=== PATIENT | male | born 1930 | race Caucasian/White ===

== ENCOUNTER → 2016-07-24 | Outpatient (CLI) | payer OTHER ==
[~2016-07-24] MED LIST: CYAN100020 PO; LISI-461 PO; MOME50SP5; MULT-190 PO; SERT50TA PO; ZNTT/150 PO
--- NOTE | 2016-07-24 12:14 | DIAGNOSTIC IMAGING REPORT ---
VIDEO SWALLOW HISTORY: Dysphagia SWALLOWING DYSFUNCTION TECHNIQUE: Video fluoroscopic evaluation of swallowing was performed in the AP and lateral projections by the speech pathology staff. The patient is fed nectar-thick and thin liquid barium, a barium coated wafer, and barium pudding. FLUOROSCOPY TIME: . COMPARISON STUDY: None. FINDINGS: There is normal hyoid excursion and epiglottic deflection. No significant penetration or aspiration identified. Swallowing function is within normal limits. IMPRESSION: 1. No aspiration identified. 2. Please see the speech pathologist report for detailed findings and recommendations. Electronically signed by: Mukul Crystal M.D. 07/24/2016 12:12 PM Dictated Date/Time: 07/24/2016 12:11 PM
--- NOTE | 2016-07-25 13:50 | SWALLOWING EVALUATION ---
HISTORY: This 85 year old man was referred for a video swallow study at [facility] in order to rule out aspiration and identify the safest consistencies for optimal oral intake. The patient was present and is reporting the patient coughs with liquids. This occurs more so when he drinks liquids straight out of the bottle (such as water), and now he drinks liquid from the cup with noted improvement. PMH is significant for: Dementia, frequent falls, CKD Stage III, GERD, and prostate cancer. Current diet is regular. PROCEDURE: The patient was seen in the Radiology Department of [facility] for the VFSS. Cursory examination of the oral cavity revealed natural dentition in good condition. Movement of the articulators was wnl. The patient was seated upright on a stool and was viewed in both the Anterior-Posterior (A-P) and Lateral planes. In the lateral plane, the patient was given the following boluses: 1 tsp. thin liquid barium x 2, single swallow thin liquid barium self-presented from a cup, serial swallows of thin liquid barium self-presented via straw, 1 tsp. nectar-thick liquid barium, 1 cup sips nectar thick liquid self-presented from the cup, 1 tsp. barium pudding, and 1 tsp. barium pudding. The patient was then repositioned into the A-P plane and given the following boluses: 1 tsp. nectar thick barium liquid and 1 tsp. barium pudding. RESULTS: Oral Stage: Lip closure was adequate as there was no anterior loss. The patient was able to maintain a cohesive liquid bolus upon command without lateral or posterior escape. Mastication and lingual motion for bolus transport were slow. There was retention lining the tongue and palate after the swallow. The initiation of the pharyngeal swallow was delayed, and triggered when the bolus head reached the valleculae. Pharyngeal Stage: Soft palate elevation was complete. Laryngeal elevation revealed complete superior movement of the thyroid cartilage with complete approximation of the arytenoids to the epiglottic base. Anterior hyoid excursion was partially reduced. Epiglottic deflection was complete. Laryngeal vestibular closure was complete. The pharyngeal stripping wave was present and complete. Pharyngeal contraction was also complete. The opening to the pharyngoesophageal segment (PES) was partially reduced with distention and duration of the opening. Tongue base retraction was mildly reduced with a narrow column of contrast located between the tongue base and the pharyngeal wall during the swallow. There was retention located along the tongue base after the swallow. Trace retention was located in the valleculae and pyriforms after the swallow. There was no evidence of laryngeal penetration or aspiration during this study. There were only trace amounts of retention in the pharynx after the swallow was complete as well. A second swallow was effective to clear. Esophageal stage: There was complete esophageal clearance. A cervical osteophyte was present that impinged into the mid esophagus but did not appear to significant impact bolus flow. SUMMARY/RECOMMENDATIONS: This patient presents with normal laurita-pharyngeal swallowing mechanics. The following is recommended: 1. Regular consistency diet. 2. Safe swallow strategies: Small single sips from the cup and/or straw. Keep chin in a neutral position while eating and drinking. Slow rate. A summary of the results and recommendations was discussed with the patient and his (due to underlying dementia, it was uncertain as to the patient's full comprehension) immediately following the study with verbal understanding. Thank you for referral of this patient. Please contact me at if any additional information is needed.
== END | disposition home or self-care (01) ==
LOC: C.RAD 11:11
PROVIDERS: ATTEND Family Medicine
DX: R13.10 Dysphagia, unspecified (principal)

== ENCOUNTER 2017-05-10 11:04 | Emergency (ER) | payer OTHER ==
[~2017-05-10] VITALS: Ht 175.3 cm; Wt 87.3 kg
[~2017-05-10 11:04] MED LIST changes: +RANI150T85 PO; -ZNTT/150 PO
[2017-05-10 11:07] VITALS: TEMP 36.7; Ht 175.3 cm; Wt 87.3 kg
[2017-05-10] MEDS ORDERED: SODIUM CHLORIDE 0.9% 1000ML 1,000 ML IV STA (11:35)
--- NOTE | 2017-05-10 11:41 | EMERGENCY ROOM VISIT NOTE ---
History Report prepared by Kathy: Sarina Saleem Under the Supervision of: Dr. Fabian Thomas M.D. 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 She states that she does not know if he has not drank enough fluids lately. His reports he has a difficult time with yeses and nos due to his dementia. HPI limited due to the patient's dementia. Source of History: patient, spouse/significant other () History Limited By: dementia Onset: midnight last night Review of Systems See HPI for pertinent positives & negatives. A total of 10 systems reviewed and were otherwise negative. ROS limited secondary to the patient's dementia. Past Medical & Surgical Medical Problems: (1) Esophageal Reflux (2) Malign Neopl Prostate Family History No pertinent family history Social History Smoking Status: Never Smoker Drug Use: none Marital Status: Housing Status: lives with significant other Current/Historical Medications Scheduled Cyanocobalamin (Vitamin B12), 1 TAB PO DAILY Lisinopril (Zestril), 10 MG PO HS Mometasone Furoate (Nasal) (Mometasone Furoate), 2 SPRAYS NA DAILY Ocuvite Preservision (Ocuvite Preservision), 1 TAB PO QAM Ranitidine (Zantac), 150 MG PO QPM Sertraline (Zoloft), 25 MG PO NOON Tamsulosin Hcl (Flomax), 0.4 MG PO DAILY Allergies Coded Allergies: No Known Allergies (Unverified , 05/10/17) Physical Exam Vital Signs Date Time Temp Pulse Resp B/P (MAP) Pulse Ox O2 Delivery O2 Flow Rate FiO2 05/10/17 13:57 58 18 125/59 95 05/10/17 13:00 62 18 127/62 95 Room Air 05/10/17 12:11 55 05/10/17 11:07 36.7 66 24 150/70 95 Room Air Physical Exam GENERAL: Awake, alert, well-appearing, in no acute distress. Does not answer questions. HENT: Normocephalic, atraumatic. Oropharynx unremarkable. EYES: Normal conjunctiva. Sclera non-icteric. NECK: Supple. No nuchal rigidity. FROM. No JVD. RESPIRATORY: Clear to auscultation. CARDIAC: Regular rate, normal rhythm. Extremities warm and well perfused. Pulses equal. ABDOMEN: Suprapubic area tenderness, area is rock hard. RECTAL: Deferred. MUSCULOSKELETAL: Chest examination reveals no tenderness. The back is symmetrical on inspection without obvious abnormality. There is no CVA tenderness to palpation. No joint edema. LOWER EXTREMITIES: Calves are equal size bilaterally and non-tender. No edema. No discoloration. NEURO: Normal sensorium. No sensory or motor deficits noted. SKIN: No rash or jaundice noted. Medical Decision & Procedures ER Provider Diagnostic Interpretation: Radiology results as stated below per my review and radiologist interpretation: ABD/PELVIS WITHOUT FOR STONE HISTORY: 86 years-old Male Pt c/o urinary retention acute urinary retention. COMPARISON: None available TECHNIQUE: Multiple axial CT images of the abdomen and pelvis were obtained without contrast. A dose lowering technique was used consistent with the principals of ALARA. FINDINGS: Exam is motion degraded. Linear subsegmental consolidative and groundglass opacities of the lung bases suggest areas of atelectasis/scarring. There is mild bibasilar bronchial wall thickening. No pneumatosis or pneumoperitoneum. Imaged cardiac chambers appear mildly enlarged. Annular calcifications of the mitral valve. Coronary arterial disease. Gallbladder is mildly contracted. The liver, spleen, pancreas and adrenal glands are within normal limits. Low attenuating lesions of the kidneys bilaterally suggests renal cysts, largest on the right measuring 3.8 cm. The largest on the left measures 7.6 x 7.1 cm and demonstrates thin calcified internal septation along its anterior border. Mild nonspecific bilateral perinephric stranding. Additionally, there is a hyperattenuating 4.6 x 4.6 cm homogeneous lesion of the inferior pole left kidney may reflect a hemorrhagic or proteinaceous cyst. No renal calculi or hydronephrosis. Bilateral ureters are within normal limits. Bates catheter noted within a decompressed bladder lumen. Urinary bladder wall thickening with mild perivesicular stranding. Brachial therapy seeds of the prostate. Moderate atherosclerosis of the aorta. No aneurysm. No bulky adenopathy. Small sliding-type hiatal hernia. No bowel obstruction or focal bowel wall thickening. Moderate volume of stool within the colon. Soft tissues are unremarkable. Small fat filled left inguinal hernia. The bones appear mildly demineralized. No suspicious lytic or blastic bone lesions. Multilevel discogenic degenerative changes and facet arthropathy. IMPRESSION: 1. Bates catheter within a decompressed bladder lumen. The bladder demonstrates wall thickening with mild perivesicular stranding. Correlate with urinalysis to exclude cystitis. 2. No renal calculi or obstructive uropathy. 3. Low attenuating lesions of the kidneys bilaterally suggest renal cysts. Cystic lesion with calcified thin internal septation involves the superior pole left kidney and hyperattenuating homogeneous lesion of the inferior pole left kidney suggest complex renal cysts however are not completely characterized on this single phase noncontrast study. 4. No bowel obstruction or focal bowel wall thickening. The above report was generated using voice recognition software. It may contain grammatical, syntax or spelling errors. Electronically signed by: Krunal Ospina M.D. 05/10/2017 1:06 PM Dictated Date/Time: 05/10/2017 12:54 PM Laboratory Results 05/10/17 11:40 Red Blood Count 3.95, Mean Corpuscular Volume 91.9, Mean Corpuscular Hemoglobin 31.4, Mean Corpuscular Hemoglobin Concent 34.2, Mean Platelet Volume 10.7, Neutrophils (%) (Auto) 75.4, Lymphocytes (%) (Auto) 12.5, Monocytes (%) (Auto) 10.3, Eosinophils (%) (Auto) 1.3, Basophils (%) (Auto) 0.3, Neutrophils # (Auto ) 4.70, Lymphocytes # (Auto) 0.78, Monocytes # (Auto) 0.64, Eosinophils # (Auto ) 0.08, Basophils # (Auto) 0.02 05/10/17 11:40 Test 05/10/17 11:40 05/10/17 11:45 White Blood Count 6.23 K/uL (4.8-10.8) Red Blood Count 3.95 M/uL (4.7-6.1) Hemoglobin 12.4 g/dL (14.0-18.0) Hematocrit 36.3 % (42-52) Mean Corpuscular Volume 91.9 fL (80-100) Mean Corpuscular Hemoglobin 31.4 pg (25-34) Mean Corpuscular Hemoglobin Concent 34.2 g/dl (32-36) Platelet Count 200 K/uL (130-400) Mean Platelet Volume 10.7 fL (7.4-10.4) Neutrophils (%) (Auto) 75.4 % Lymphocytes (%) (Auto) 12.5 % Monocytes (%) (Auto) 10.3 % Eosinophils (%) (Auto) 1.3 % Basophils (%) (Auto) 0.3 % Neutrophils # (Auto) 4.70 K/uL (1.4-6.5) Lymphocytes # (Auto) 0.78 K/uL (1.2-3.4) Monocytes # (Auto) 0.64 K/uL (0.11-0.59) Eosinophils # (Auto) 0.08 K/uL (0-0.5) Basophils # (Auto) 0.02 K/uL (0-0.2) RDW Standard Deviation 44.3 fL (36.4-46.3) RDW Coefficient of Variation 13.1 % (11.5-14.5) Immature Granulocyte % (Auto) 0.2 % Immature Granulocyte # (Auto) 0.01 K/uL (0.00-0.02) Anion Gap 5.0 mmol/L (3-11) Est Creatinine Clear Calc Drug Dose 45.9 ml/min Estimated GFR () 57.5 Estimated GFR (Non- 49.6 BUN/Creatinine Ratio 19.9 (10-20) Calcium Level 9.5 mg/dl (8.5-10.1) Total Bilirubin 0.5 mg/dl (0.2-1) Direct Bilirubin 0.1 mg/dl (0-0.2) Aspartate Amino Transf (AST/SGOT) 18 U/L (15-37) Alanine Aminotransferase (ALT/SGPT) 17 U/L (12-78) Alkaline Phosphatase 57 U/L (45-117) Total Protein 7.2 gm/dl (6.4-8.2) Albumin 3.9 gm/dl (3.4-5.0) Lipase 339 U/L (73-393) Urine Color YELLOW Urine Appearance CLEAR (CLEAR) Urine pH 5.0 (4.5-7.5) Urine Specific Caputa 1.015 (1.000-1.030) Urine Protein NEG (NEG) Urine Glucose (UA) NEG (NEG) Urine Ketones NEG (NEG) Urine Occult Blood NEG (NEG) Urine Nitrite NEG (NEG) Urine Bilirubin NEG (NEG) Urine Urobilinogen NEG (NEG) Urine Leukocyte Esterase NEG (NEG) Labs reviewed by ED physician. Medications Administered Medications (Trade) Dose Ordered Sig/Fatmata Route Start Time Stop Time Status Last Admin Dose Admin Sodium Chloride 1,000 ml @ 999 mls/hr Q1H1M STAT IV 05/10/17 11:35 05/10/17 12:35 DC 05/10/17 11:57 999 MLS/HR ED Course 1132: Past medical records reviewed. The patient was evaluated in room C10. A complete history and physical examination was performed. 1135: Sodium Chloride 1000 ml @ 999 mls/hr IV 1221: He is feeling much better now that there is a Bates in place. 1310: Upon reexamination the patient is agreeable. I discussed results and treatment plan with the patient and his . He and his verbalize agreement and understanding. The patient is ready for discharge. Medical Decision Differential diagnosis: Etiologies such as appendicitis, diverticulitis, PUD, biliary pathology, UTI, pancreatitis, obstruction, mesenteric ischemia, aortic pathology, infections, inflammatory bowel disease, renal colic, as well as others were entertained. This is an 86-year-old male who presents emergency department complaining of urinary retention. A Bates was placed and the patient experienced immediate cessation of pain. He was given a fluid bolus however he has a normal renal function normal CBC normal liver profile normal lipase. The patient was sent for CAT scan of the abdomen and pelvis this did not show anything acute. Patient will be sent home with a Bates catheter in place. I stressed the need for follow-up with urology. Patient was in agreement with the treatment plan. Medication Reconcilliation Current Medication List: was personally reviewed by me Blood Pressure Screening Patient's blood pressure: Elevated blood pressure Blood pressure disposition: Referred to PCP Impression Primary Impression: Urinary retention Scribe Attestation The scribe's documentation has been prepared under my direction and personally reviewed by me in its entirety. I confirm that the note above accurately reflects all work, treatment, procedures, and medical decision making performed by me. Departure Information Dispostion Home / Self-Care Prescriptions Tamsulosin Hcl (FLOMAX) 0.4 Mg Cap 0.4 MG PO DAILY for 10 Days, #10 CAP Prov: Fabian Thomas MD 05/10/17 Referrals Andrew Ty M.D. (PCP) Forms HOME CARE DOCUMENTATION FORM, IMPORTANT VISIT INFORMATION, WORK / SCHOOL INSTRUCTIONS Patient Instructions My [facility] Additional Instructions Follow up with Dr Aponte' office Culture results are usually available in approx 48 hours You have been examined and treated today on an emergency basis only. This is not a substitute for, or an effort to provide, complete comprehensive medical care. It is impossible to recognize and treat all injuries or illnesses in a single emergency department visit. It is therefore important that you follow up closely with Dr Ty. Call as soon as possible for an appointment. Thank you for your time and consideration. I look forward to speaking with you again soon. Please don't hesitate to call us if you have any questions.
[2017-05-10 11:54] LABS: BASO % 0.3 %; BASO ABS # 0.02 K/uL (0-0.2); EOS % 1.3 %; EOS ABS # 0.08 K/uL (0-0.5); HEMATOCRIT 36.3 % (42-52); HEMOGLOBIN 12.4 g/dL (14.0-18.0); IG# 0.01 K/uL (0.00-0.02); LYMPH % 12.5 %; LYMPH ABS # 0.78 K/uL (1.2-3.4); MEAN CELL VOLUME 91.9 fL (80-100); MEAN CORPUSCULAR HEMOGLOBIN 31.4 pg (25-34); MEAN CORPUSCULAR HGB CONC 34.2 g/dl (32-36); MEAN PLATELET VOLUME 10.7 fL (7.4-10.4); MONO % 10.3 %; MONO ABS # 0.64 K/uL (0.11-0.59); NEUT % 75.4 %; PLATELET COUNT 200 K/uL (130-400); RED CELL DISTRIBUTION WIDTH CV 13.1 % (11.5-14.5); RED CELL DISTRIBUTION WIDTH SD 44.3 fL (36.4-46.3); WHITE BLOOD COUNT 6.23 K/uL (4.8-10.8)
[2017-05-10] MEDS ORDERED: MOME6000 (12:04)
[2017-05-10 12:29] LABS: ALBUMIN 3.9 gm/dl (3.4-5.0); CALCIUM 9.5 mg/dl (8.5-10.1); CREATININE 1.31 mg/dl (0.60-1.40); TOTAL PROTEIN 7.2 gm/dl (6.4-8.2)
--- NOTE | 2017-05-10 13:08 | DIAGNOSTIC IMAGING REPORT ---
ABD/PELVIS WITHOUT FOR STONE HISTORY: 86 years-old Male Pt c/o urinary retention acute urinary retention. COMPARISON: None available TECHNIQUE: Multiple axial CT images of the abdomen and pelvis were obtained without contrast. A dose lowering technique was used consistent with the principals of TROY. FINDINGS: Exam is motion degraded. Linear subsegmental consolidative and groundglass opacities of the lung bases suggest areas of atelectasis/scarring. There is mild bibasilar bronchial wall thickening. No pneumatosis or pneumoperitoneum. Imaged cardiac chambers appear mildly enlarged. Annular calcifications of the mitral valve. Coronary arterial disease. Gallbladder is mildly contracted. The liver, spleen, pancreas and adrenal glands are within normal limits. Low attenuating lesions of the kidneys bilaterally suggests renal cysts, largest on the right measuring 3.8 cm. The largest on the left measures 7.6 x 7.1 cm and demonstrates thin calcified internal septation along its anterior border. Mild nonspecific bilateral perinephric stranding. Additionally, there is a hyperattenuating 4.6 x 4.6 cm homogeneous lesion of the inferior pole left kidney may reflect a hemorrhagic or proteinaceous cyst. No renal calculi or hydronephrosis. Bilateral ureters are within normal limits. Bates catheter noted within a decompressed bladder lumen. Urinary bladder wall thickening with mild perivesicular stranding. Brachial therapy seeds of the prostate. Moderate atherosclerosis of the aorta. No aneurysm. No bulky adenopathy. Small sliding-type hiatal hernia. No bowel obstruction or focal bowel wall thickening. Moderate volume of stool within the colon. Soft tissues are unremarkable. Small fat filled left inguinal hernia. The bones appear mildly demineralized. No suspicious lytic or blastic bone lesions. Multilevel discogenic degenerative changes and facet arthropathy. IMPRESSION: 1. Bates catheter within a decompressed bladder lumen. The bladder demonstrates wall thickening with mild perivesicular stranding. Correlate with urinalysis to exclude cystitis. 2. No renal calculi or obstructive uropathy. 3. Low attenuating lesions of the kidneys bilaterally suggest renal cysts. Cystic lesion with calcified thin internal septation involves the superior pole left kidney and hyperattenuating homogeneous lesion of the inferior pole left kidney suggest complex renal cysts however are not completely characterized on this single phase noncontrast study. 4. No bowel obstruction or focal bowel wall thickening. The above report was generated using voice recognition software. It may contain grammatical, syntax or spelling errors. Electronically signed by: Krunal Ospina M.D. 05/10/2017 1:06 PM Dictated Date/Time: 05/10/2017 12:54 PM
[2017-05-10] MEDS ORDERED: TAMS0.4C38 PO (13:24)
[2017-05-10 13:57] VITALS: BP 125/59; PULSE 58; O2SAT 95
== END 2017-05-10 13:59 | disposition home or self-care (01) ==
LOC: C.EDB 11:05 → C.EDC 13:59
DX: R33.9 Retention of urine, unspecified (principal); K21.9 Gastro-esophageal reflux disease without esophagitis; F03.90 Unspecified dementia, unspecified severity, without behavioral disturbance, psychotic disturbance, mood disturbance, and anxiety; Z85.46 Personal history of malignant neoplasm of prostate; Z79.899 Other long term (current) drug therapy

== ENCOUNTER 2018-01-20 21:38 | Inpatient (IN) ==
--- NOTE | 2018-01-20 22:41 | XRay Report ---
SINGLE VIEW CHEST CLINICAL HISTORY: Weakness. FINDINGS: An AP, portable, upright chest radiograph is compared to study dated 11/29/2015. The examina tion is significantly degraded by portable technique and patient rotation. The heart is mildly enlar ged and there is atherosclerotic calcification of the thoracic aorta. The pulmonary vasculature is no ncongested. There are low lung volumes. Chronic interstitial thickening is unchanged. Bibasilar scarr ing/atelectasis is observed. There is a questionable nodular density projecting the right midlung. No airspace consolidation is seen typical for pneumonia and there is no large pleural effusion. No pneu mothorax is seen. The skeletal structures are osteopenic. Degenerative changes noted in the shoulders and thoracic spine. There are healed left-sided rib fractures. IMPRESSION: 1. Cardiomegaly with no acute cardiopulmonary abnormality. 2. Low lung volumes with bibasilar scarring/atelectasis. 3. There is a questionable nodular density projecting over the right midlung. This may be artifactual . Correlation with a dedicated PA and lateral examination is recommended when the patient is clinical ly able. Electronically signed by: Luis Carson M.D. 01/20/2018 10:40 PM
[2018-01-20 22:55] LABS: Basophils # (auto) 0.03 K/uL (0-0.2); Basophils % (auto) 0.4 %; Eosinophils # (auto) 0.04 K/uL (0-0.5); Eosinophils % (auto) 0.6 %; Hematocrit (blood only) 35.2 % (42-52); Hemoglobin 11.4 g/dL (14.0-18.0); Immature Granulocytes # (auto) 0.01 K/uL (0.00-0.02); Immature Granulocytes % (auto) 0.1 %; Lymphocytes # (auto) 0.68 K/uL (1.2-3.4); Lymphocytes % (auto) 10.1 %; Mean Corpuscular Hgb Conc 32.4 g/dL (32-36); Mean Corpuscular Volume 95.9 fL (80-100); Mean Platelet Volume 12.1 fL (7.4-10.4); Monocytes # (auto) 0.63 K/uL (0.11-0.59); Monocytes % (auto) 9.3 %; Neutrophils # (auto) 5.35 K/uL (1.4-6.5); Neutrophils % (auto) 79.5 %; Platelet Count 142 K/uL (130-400); RDW Coefficient of Variation 13.3 % (11.5-14.5); RDW Standard Deviation 46.9 fL (36.4-46.3); Red Blood Count 3.67 M/uL (4.7-6.1); White Blood Count 6.74 K/uL (4.8-10.8)
--- NOTE | 2018-01-20 23:00 | CT Scan Report ---
CT SCAN OF THE BRAIN WITHOUT IV CONTRAST CLINICAL HISTORY: Dementia. Delirium. COMPARISON STUDY: CT of the brain dated 11/13/2017. TECHNIQUE: Unenhanced axial CT scan of the brain is performed from the vertex to the skull base. A do se lowering technique was utilized adhering to the principles of ALARA. CT DOSE: 614.27 mGy.cm FINDINGS: Brain parenchyma: There are age-related involutional changes noting moderate subcortical and periven tricular microangiopathic change. There is no hemorrhage, mass effect, or evidence of acute territori al ischemia by CT criteria. Roman-white matter differentiation is preserved. No extra-axial fluid elizabeth ection is seen. Ventricles, sulci, cisterns: Prominent secondary to involutional change. Intracranial vasculature: There is atherosclerotic calcification of the cavernous carotid arteries. Calvarium: Unremarkable. Sinuses and mastoids: There is a 1.6 cm retention cyst within a right posterior ethmoid air cell. The remaining visualized paranasal sinuses are clear. The mastoid air cells are well pneumatized. Orbits: The bony orbits are grossly intact. There are bilateral ocular lens implants. IMPRESSION: There is no hemorrhage, mass effect, or evidence of acute territorial ischemia by CT flor forte. Electronically signed by: Luis Carson M.D. 01/20/2018 10:59 PM
[2018-01-20 23:15] LABS: Alanine Aminotransferase 22 U/L (12-78); Albumin Level 3.6 gm/dl (3.4-5.0); BUN Creatinine Ratio 24.9 (10-20); Blood Urea Nitrogen 31 mg/dl (7-18); Carbon Dioxide 26 mmol/L (21-32); Chloride 108 mmol/L (98-107); Est GFR (African American) 61.1; Est GFR (Non-African American) 52.7; Glucose 96 mg/dl (70-99)
[2018-01-20 23:21] LABS: Potassium 4.5 mmol/L (3.5-5.1); Sodium 145 mmol/L (136-145)
[2018-01-20 23:31] LABS: Alkaline Phosphatase 94 U/L (45-117); Aspartate Aminotransferase 17 U/L (15-37); Bilirubin,Total 0.4 mg/dl (0.1-1); Globulin 3.5 gm/dl (2.5-4.0); Magnesium 2.2 mg/dl (1.8-2.4); Total Protein 7.1 gm/dl (6.4-8.2); Troponin I < 0.015 ng/ml (0-0.045)
[2018-01-21] MEDS ORDERED: HALOPERIDOL LACTATE 5 MG/ML 1 ML VIAL IV STA (00:06)
[2018-01-21 00:26] LABS: Appearance Urine Clear (Clear); Bilirubin Urine Negative (Negative); Color Urine Yellow; Glucose Urine UA Negative (Negative); Ketones Urine Negative (Negative); Leukocyte Esterase Urine Negative (Negative); Nitrite Urine Negative (Negative); Protein Urine Negative (Negative); Urobilinogen Urine Negative (Negative); pH Urine 6.5 (4.5-7.5)
--- NOTE | 2018-01-21 00:46 | Emergency Department Note ---
Entered by Sarina Saleem acting as a scribe for Raine Campuzano MD History of Present Illness General Chief complaint: Confusion Stated complaint: LEWY BODY DEMENTIA AGITATED STATE Source: family and other (asset management lead) History of Present Illness Onset (ago): hour(s) (1600 today) Location: head, upper extremity and lower extremity Pain Consistency: + other (worsening) Quality: + other (confusion, increased agitation) Associated symptoms: + other (Positive glassy eyes, wanting to be a dog, wanting to go outside and kill himself, and he becomes somewhat aggressive with his . Negative head injuries, congestion, changes in appetite); no cough and no fever/chills The patient is an 87 year old male who presents to the Emergency Room with complaints of confusion beginning at 1600 today. As per the patients family, the pt has lewy body dementia and they have been looking to put him in a senior living as his frequency of psychotic episodes is increasing. They note his episodes typically last about 30 minutes however, his current episode has persisted for the past 6 hours. They describe his episodes as the patient having glassy eyes, wanting to be a dog, wanting to go outside and kill himself , and he becomes somewhat aggressive with his . The patient has not had any head injuries, fevers, chills, cough, or congestion. The patient has no change in appetite and regularly takes his medications. His PCP is Annie Mi. Home Medications Home Medications Medication Instructions Recorded Confirmed Type acetaminophen [Tylenol] 650 mg PO Q4 PRN 11/13/17 01/21/18 History cyanocobalamin (vitamin B-12) 1,000 mcg PO DAILY 11/13/17 01/21/18 History [Vitamin B-12] mometasone [Nasonex] 2 spray INTRANASAL DAILY PRN 11/13/17 01/21/18 History ranitidine HCl 150 mg PO DAILY 11/13/17 01/21/18 History sertraline 25 mg PO DAILY 11/13/17 01/21/18 History multivitamin 1 tab PO DAILY 01/21/18 01/21/18 History vit C,F-Gh-iwzxd-lutein-zeaxan 2 tab PO DAILY 01/21/18 01/21/18 History [PreserVision AREDS-2] Allergies Allergy/AdvReac Type Severity Reaction Status Date / Time oxybutynin AdvReac Severe LETHARGIC Verified 01/21/18 00:22 quetiapine AdvReac Severe LETHARGIC Verified 01/21/18 00:22 Past Med/Surg History Medical History Hand laceration (Acute) Scalp laceration (Acute) Fall (Acute) Knee contusion (Acute) Lewy body dementia Family History Other Family history non-contributory Social History current occupational status: retired Feels Safe at Home: Yes Smoking Status: Former smoker Preferred Language: Tamazight Review of Systems See HPI for pertinent positives & negatives. and A total of 10 systems reviewed and were otherwise negative Physical Exam Vital Signs Vital Signs - 24 hr 01/20/18 21:42 01/20/18 22:39 01/21/18 00:16 Temperature 37 C Temperature Source Oral Sepsis Recent Fever Within 48 Hours No Sepsis Action Taken by Nursing No Action Required Pulse Rate 83 Pulse Rate [Apical] 70 77 Pulse Rhythm [Apical] Regular Pulse Strength [Apical] Normal Respiratory Rate 18 22 18 Respiratory Effort / Characteristics Non-Labored Spontaneous Respiratory Depth Normal Normal Respiratory Pattern Regular Blood Pressure 182/92 H Blood Pressure [Right Arm] 147/66 H 166/88 H Blood Pressure Mean 122 Blood Pressure Mean [Right Arm] 93 114 Blood Pressure Position [Right Arm] Sitting Pulse Oximetry 95 95 95 Oxygen Delivery Method Room Air Room Air Room Air Vital signs reviewed. General: Elderly and chronically ill-appearing male, in no significant distress. HEENT: No scleral icterus, PERRLA, neck supple. Atraumatic. Cardiovascular: Regular rate and rhythm, no extra sounds. Pulmonary: Clear to auscultation bilaterally, normal work of breathing. Abdomen: Soft, nontender, nondistended, positive bowel sounds. Musculoskeletal: Atraumatic, no peripheral edema. Neurologic: Minimally verbal. Repetitive speech. Follows simple commands. Easily agitated. Moves all extremities equally. Skin: Warm, dry, no rash Course 2201: Past medical records reviewed. The patient was evaluated in room A2, and a complete history and physical examination were performed. 0009: I [facility] the [facility] He will evaluate the patient for further management. Consultations Consultation #1: I reviewed the patient's case with Annie Winkler. He will evaluate the patient for further management. Time: 00:09 Administered Medications Haldol 2.5 mg IV NOW Medical Decision Making Differential Diagnosis Differential diagnosis: Etiologies such as metabolic, infection, hypoglycemia, electrolyte abnormalities , cardiac sources, intracerebral event, toxicologic, neurologic, as well as others were entertained. Medical Records Attestation: I reviewed the patient's medical records. Home Medications Current Medication List: was personally reviewed by me Laboratory Data Attestation: I reviewed the patient's lab results. Result diagrams: 01/20/18 22:40 01/20/18 22:40 Lab Results 01/20/18 01/20/18 01/20/18 Range/Units 22:37 22:40 22:40 WBC 6.74 (4.8-10.8) K/uL RBC 3.67 L (4.7-6.1) M/uL Hgb 11.4 L (14.0-18.0) g/dL Hct 35.2 L (42-52) % MCV 95.9 (80-100) fL MCH 31.1 (25-34) pg MCHC 32.4 (32-36) g/dL RDW Std Deviation 46.9 H (36.4-46.3) fL RDW Coeff of Lanette 13.3 (11.5-14.5) % Plt Count 142 (130-400) K/uL MPV 12.1 H (7.4-10.4) fL Immature Gran % (Auto) 0.1 % Neut % (Auto) 79.5 % Lymph % (Auto) 10.1 % [place] % (Auto) 9.3 % Eos % (Auto) 0.6 % Baso % (Auto) 0.4 % Immature Gran # (Auto) 0.01 (0.00-0.02) K/uL Neut # (Auto) 5.35 (1.4-6.5) K/uL Lymph # (Auto) 0.68 L (1.2-3.4) K/uL [place] # (Auto) 0.63 H (0.11-0.59) K/uL Eos # (Auto) 0.04 (0-0.5) K/uL Baso # (Auto) 0.03 (0-0.2) K/uL Sodium 145 (136-145) mmol/L Potassium 4.5 (3.5-5.1) mmol/L Chloride 108 H (98-107) mmol/L Carbon Dioxide 26 (21-32) mmol/L Anion Gap 12.0 H (3-11) BUN 31 H (7-18) mg/dl Creatinine 1.24 (0.6-1.4) mg/dl Est Cr Clr Drug Dosing 45.0 ml/min Est GFR ( Amer) 61.1 Est GFR (Non-Af Amer) 52.7 BUN/Creatinine Ratio 24.9 H (10-20) Glucose 96 (70-99) mg/dl POC Glucose 98 (70-99) Calcium 9.0 (8.5-10.1) mg/dl Magnesium 2.2 (1.8-2.4) mg/dl Total Bilirubin 0.4 (0.1-1) mg/dl AST 17 (15-37) U/L ALT 22 (12-78) U/L Alkaline Phosphatase 94 (45-117) U/L Troponin I < 0.015 (0-0.045) ng/ml Total Protein 7.1 (6.4-8.2) gm/dl Albumin 3.6 (3.4-5.0) gm/dl Globulin 3.5 (2.5-4.0) gm/dl Albumin/Globulin Ratio 1.0 (0.9-2) TSH 3.420 (0.300-4.500) uIu/ml Specimen Hemolysis Urine Color Urine Appearance (Clear) Urine pH (4.5-7.5) Ur Specific [place] (1.000-1.030) Urine Protein (Negative) Urine Glucose (UA) (Negative) Urine Ketones (Negative) Urine Blood (Negative) Urine Nitrite (Negative) Urine Bilirubin (Negative) Urine Urobilinogen (Negative) Ur Leukocyte Esterase (Negative) 01/21/18 Range/Units 00:10 WBC (4.8-10.8) K/uL RBC (4.7-6.1) M/uL Hgb (14.0-18.0) g/dL Hct (42-52) % MCV (80-100) fL MCH (25-34) pg MCHC (32-36) g/dL RDW Std Deviation (36.4-46.3) fL RDW Coeff of [place]ette (11.5-14.5) % Plt Count (130-400) K/uL MPV (7.4-10.4) fL Immature Gran % (Auto) % Neut % (Auto) % Lymph % (Auto) % [place] % (Auto) % Eos % (Auto) % Baso % (Auto) % Immature Gran # (Auto) (0.00-0.02) K/uL Neut # (Auto) (1.4-6.5) K/uL Lymph # (Auto) (1.2-3.4) K/uL [place] # (Auto) (0.11-0.59) K/uL Eos # (Auto) (0-0.5) K/uL Baso # (Auto) (0-0.2) K/uL Sodium (136-145) mmol/L Potassium (3.5-5.1) mmol/L Chloride (98-107) mmol/L Carbon Dioxide (21-32) mmol/L Anion Gap (3-11) BUN (7-18) mg/dl Creatinine (0.6-1.4) mg/dl Est Cr Clr Drug Dosing ml/min Est GFR ( Amer) Est GFR (Non-Af Amer) BUN/Creatinine Ratio (10-20) Glucose (70-99) mg/dl POC Glucose (70-99) Calcium (8.5-10.1) mg/dl Magnesium (1.8-2.4) mg/dl Total Bilirubin (0.1-1) mg/dl AST (15-37) U/L ALT (12-78) U/L Alkaline Phosphatase (45-117) U/L Troponin I (0-0.045) ng/ml Total Protein (6.4-8.2) gm/dl Albumin (3.4-5.0) gm/dl Globulin (2.5-4.0) gm/dl Albumin/Globulin Ratio (0.9-2) TSH (0.300-4.500) uIu/ml Specimen Hemolysis Urine Color Yellow Urine Appearance Clear (Clear) Urine pH 6.5 (4.5-7.5) Ur Specific [place] 1.020 (1.000-1.030) Urine Protein Negative (Negative) Urine Glucose (UA) Negative (Negative) Urine Ketones Negative (Negative) Urine Blood Negative (Negative) Urine Nitrite Negative (Negative) Urine Bilirubin Negative (Negative) Urine Urobilinogen Negative (Negative) Ur Leukocyte Esterase Negative (Negative) Imaging Data Radiologist's Impression: Radiology results as stated below per my review and the radiologist's interpretation: CT SCAN OF THE BRAIN WITHOUT IV CONTRAST CLINICAL HISTORY: Dementia. Delirium. COMPARISON STUDY: CT of the brain dated 11/13/2017. TECHNIQUE: Unenhanced axial CT scan of the brain is performed from the vertex to the skull base. A dose lowering technique was utilized adhering to the principles of ALARA. CT DOSE: 614.27 mGy.cm FINDINGS: Brain parenchyma: There are age-related involutional changes noting moderate subcortical and periventricular microangiopathic change. There is no hemorrhage , mass effect, or evidence of acute territorial ischemia by CT criteria. Roman- white matter differentiation is preserved. No extra-axial fluid collection is seen. Ventricles, sulci, cisterns: Prominent secondary to involutional change. Intracranial vasculature: There is atherosclerotic calcification of the cavernous carotid arteries. Calvarium: Unremarkable. Sinuses and mastoids: There is a 1.6 cm retention cyst within a right posterior ethmoid air cell. The remaining visualized paranasal sinuses are clear. The mastoid air cells are well pneumatized. Orbits: The bony orbits are grossly intact. There are bilateral ocular lens implants. IMPRESSION: There is no hemorrhage, mass effect, or evidence of acute territorial ischemia by CT criteria. Electronically signed by: Luis Carson M.D. 01/20/2018 10:59 PM SINGLE VIEW CHEST CLINICAL HISTORY: Weakness. FINDINGS: An AP, portable, upright chest radiograph is compared to study dated . The examination is significantly degraded by portable technique and patient rotation. The heart is mildly enlarged and there is atherosclerotic calcification of the thoracic aorta. The pulmonary vasculature is noncongested. There are low lung volumes. Chronic interstitial thickening is unchanged. Bibasilar scarring/atelectasis is observed. There is a questionable nodular density projecting the right midlung. No airspace consolidation is seen typical for pneumonia and there is no large pleural effusion. No pneumothorax is seen. The skeletal structures are osteopenic. Degenerative changes noted in the shoulders and thoracic spine. There are healed left-sided rib fractures. IMPRESSION: 1. Cardiomegaly with no acute cardiopulmonary abnormality. 2. Low lung volumes with bibasilar scarring/atelectasis. 3. There is a questionable nodular density projecting over the right midlung. This may be artifactual. Correlation with a dedicated PA and lateral examination is recommended when the patient is clinically able. Electronically signed by: Luis Carson M.D. 01/20/2018 10:40 PM ECG Data Attestation: I personally reviewed and interpreted this ECG as follows: Indication: altered mental status Rate (beats per minute): 72 Rhythm: sinus rhythm Findings: + other (previous septal infarct ) and + 1st degree AV block; no acute ischemic change and no ectopy Blood Pressure Blood Pressure Findings: Elevated blood pressure Blood Pressure Disposition: further management by hospitalist MDM Narrative This patient was evaluated and appeared to be in no significant distress. Patient does seem to get agitated somewhat easily. His and grandson are at the bedside. He apparently has been crawling around like a dog tonight for hours. He has been aggressive and physically threatening to his . Multiple attempts have been made to get the patient placed from home however unsuccessful. Patient's medical evaluation is fairly unrevealing. He will be evaluated by Dr. Cortes for further management and case management intervention. Impression & Plan Dementia, Aggressive behavior Discharge Plan Visit Data Chief Complaint: Confusion Stated Complaint: LEWY BODY DEMENTIA AGITATED STATE ED Provider: Raine Campuzano Discharge Problem: Dementia, Aggressive behavior Patient Disposition: Being Evaluated by Hospitalist Forms Stand Alone Forms: [facility] Frequency Prescriptions Prescriptions: No Action cyanocobalamin (vitamin B-12) [Vitamin B-12] 1,000 mcg Tablet 1,000 mcg PO DAILY RF: 0 mometasone [Nasonex] 50 mcg/actuation [place],Non-Aerosol 2 spray INTRANASAL DAILY PRN (Reason: Congestion) RF: 0 ranitidine HCl 150 mg Capsule 150 mg PO DAILY RF: 0 sertraline 50 mg Tablet 25 mg PO DAILY RF: 0 acetaminophen [Tylenol] 325 mg Capsule 650 mg PO Q4 PRN (Reason: Fever Or Pain) RF: 0 multivitamin Tablet 1 tab PO DAILY RF: 0 vit C,Q-Bv-vptep-lutein-zeaxan [PreserVision AREDS-2] 865-974-77-1 mg-unit-mg- mg Capsule 2 tab PO DAILY RF: 0 Referrals Referrals: Andrew Ty [Primary Care Provider] - The scribe's documentation has been prepared under my direction and personally reviewed by me in its entirety. I confirm that the note above accurately reflects all work, treatment, procedures, and medical decision making performed by me.
--- NOTE | 2018-01-21 01:06 | History & Physical Report ---
Date of Service January 21, 2018 Assessment & Plan (1) Agitation: History dementia Hypertension, currently elevated secondary to agitation BP medications stopped a few months ago due to fall concerns. Left neck deviation Rule out bony injury Prostate cancer status post radiation Chronic anemia, hemoglobin at baseline Abnormal portable chest x-ray OBS GMF Haldol as needed Resume home JULIUS inhibitor at low dose Plain neck x-rays, RE left lateral neck deviation Chest x-ray PA lat in a.m. RE abn pcxr PT OT eval Social service RE discharge planning (Family has expressed interest in having patient placed at [facility].) DVT prophylaxis. Lovenox subcu DNR as per . Patient's grandson requesting for updates from providers. Mr. Brigido Bui, [phone]. Present on Admission?: Yes History of Present Illness Chief Complaint: Agitation as per family Primary Care Provider: Andrew Ty History obtained from patient family and records. Unable to obtain history from patient secondary to dementia. Medical history significant for hypertension (currently not on meds), dementia, prostate cancer status post radiation, GERD, chronic anemia (baseline hemoglobin 11-12). Last week patient noted to have worsening agitation and hallucinations as per records. Outpatient UA did not show infection. Family had started inquiring about placing patient at [facility]. Yesterday afternoon, increased agitation noted. No fever, no chills. Patient brought to the ER by family. Medical History as above Home lisinopril stopped a few months ago due to falls. 2 weeks ago, patient noted to have neck deviation to the left by physical therapy. Possible need for Botox injection as per PT as per family. Surgical History : Hernia repair, urologic procedures Family History : Blood clots Personal/Social history : Non-smoker , no EtOH intake, retired from the [employer] business as per family Allergies Allergy/AdvReac Type Severity Reaction Status Date / Time oxybutynin AdvReac Severe LETHARGIC Verified 01/21/18 00:22 quetiapine AdvReac Severe LETHARGIC Verified 01/21/18 00:22 Home Medications Home Medications Medication Instructions Recorded Confirmed Type acetaminophen [Tylenol] 650 mg PO Q4 PRN 11/13/17 01/21/18 History cyanocobalamin (vitamin B-12) 1,000 mcg PO DAILY 11/13/17 01/21/18 History [Vitamin B-12] mometasone [Nasonex] 2 spray INTRANASAL DAILY PRN 11/13/17 01/21/18 History ranitidine HCl 150 mg PO DAILY 11/13/17 01/21/18 History sertraline 25 mg PO DAILY 11/13/17 01/21/18 History multivitamin 1 tab PO DAILY 01/21/18 01/21/18 History vit C,T-Vh-dbzcl-lutein-zeaxan 2 tab PO DAILY 01/21/18 01/21/18 History [PreserVision AREDS-2] Past Med/Surg History Medical History Hand laceration (Acute) Scalp laceration (Acute) Fall (Acute) Knee contusion (Acute) Lewy body dementia Family History Other Family history non-contributory Social History Current Living Situation: Family current occupational status: retired Feels Safe at Home: Yes Smoking Status: Unknown if ever smoked Preferred Language: Mauritian Communication Ability: Impaired Communication Ability Comment: dementia Personalized Living Manager Nurse Required: No Review of Systems Could not be reliably obtained Physical Exam 2 Vital Signs (Past 24 Hours): Last Vital Signs Temp 37 C 01/20/18 21:42 Pulse 77 01/21/18 00:16 Resp 18 01/21/18 00:16 BP 166/88 H 01/21/18 00:16 Pulse Ox 95 01/21/18 00:16 Physical Exam: GENERAL: Comfortable, demented, slightly restless, no respiratory distress SKIN: Pallor, warm HEENT: Pale palpebral conjunctivae, no ptosis, dry buccal mucosa NECK : Lateral deviation to the left, no tenderness CHEST : Decreased effort , no tenderness HEART : RRR, no obvious murmurs ABDOMEN: Soft, nontender EXTREMITIES : No LE swelling/tenderness, no other conspicuous deformities noted NEUROLOGIC : Demented , no facial asymmetry, slightly restless, gait and stance not assessed Results & Data Laboratory Results Laboratory Results WBC 6.74 K/uL (4.8-10.8) 01/20/18 22:40 RBC 3.67 M/uL (4.7-6.1) L 01/20/18 22:40 Hgb 11.4 g/dL (14.0-18.0) L 01/20/18 22:40 Hct 35.2 % (42-52) L 01/20/18 22:40 MCV 95.9 fL (80-100) 01/20/18 22:40 MCH 31.1 pg (25-34) 01/20/18 22:40 MCHC 32.4 g/dL (32-36) 01/20/18 22:40 RDW Std Deviation 46.9 fL (36.4-46.3) H 01/20/18 22:40 RDW Coeff of Lanette 13.3 % (11.5-14.5) 01/20/18 22:40 Plt Count 142 K/uL (130-400) 01/20/18 22:40 MPV 12.1 fL (7.4-10.4) H 01/20/18 22:40 Immature Gran % (Auto) 0.1 % 01/20/18 22:40 Neut % (Auto) 79.5 % 01/20/18 22:40 Lymph % (Auto) 10.1 % 01/20/18 22:40 [place] % (Auto) 9.3 % 01/20/18 22:40 Eos % (Auto) 0.6 % 01/20/18 22:40 Baso % (Auto) 0.4 % 01/20/18 22:40 Immature Gran # (Auto) 0.01 K/uL (0.00-0.02) 01/20/18 22:40 Neut # (Auto) 5.35 K/uL (1.4-6.5) 01/20/18 22:40 Lymph # (Auto) 0.68 K/uL (1.2-3.4) L 01/20/18 22:40 Dare # (Auto) 0.63 K/uL (0.11-0.59) H 01/20/18 22:40 Eos # (Auto) 0.04 K/uL (0-0.5) 01/20/18 22:40 Baso # (Auto) 0.03 K/uL (0-0.2) 01/20/18 22:40 Sodium 145 mmol/L (136-145) 01/20/18 22:40 Potassium 4.5 mmol/L (3.5-5.1) 01/20/18 22:40 Chloride 108 mmol/L (98-107) H 01/20/18 22:40 Carbon Dioxide 26 mmol/L (21-32) 01/20/18 22:40 Anion Gap 12.0 (3-11) H 01/20/18 22:40 BUN 31 mg/dl (7-18) H 01/20/18 22:40 Creatinine 1.24 mg/dl (0.6-1.4) 01/20/18 22:40 Est Cr Clr Drug Dosing 45.0 ml/min 01/20/18 22:40 Est GFR ( Amer) 61.1 01/20/18 22:40 Est GFR (Non-Af Amer) 52.7 01/20/18 22:40 BUN/Creatinine Ratio 24.9 (10-20) H 01/20/18 22:40 Glucose 96 mg/dl (70-99) 01/20/18 22:40 POC Glucose 98 (70-99) 01/20/18 22:37 Calcium 9.0 mg/dl (8.5-10.1) 01/20/18 22:40 Magnesium 2.2 mg/dl (1.8-2.4) 01/20/18 22:40 Total Bilirubin 0.4 mg/dl (0.1-1) 01/20/18 22:40 AST 17 U/L (15-37) 01/20/18 22:40 ALT 22 U/L (12-78) 01/20/18 22:40 Alkaline Phosphatase 94 U/L (45-117) 01/20/18 22:40 Troponin I < 0.015 ng/ml (0-0.045) 01/20/18 22:40 Total Protein 7.1 gm/dl (6.4-8.2) 01/20/18 22:40 Albumin 3.6 gm/dl (3.4-5.0) 01/20/18 22:40 Globulin 3.5 gm/dl (2.5-4.0) 01/20/18 22:40 Albumin/Globulin Ratio 1.0 (0.9-2) 01/20/18 22:40 TSH 3.420 uIu/ml (0.300-4.500) 01/20/18 22:40 Specimen Hemolysis 01/20/18 22:40 Urine Color Yellow 01/21/18 00:10 Urine Appearance Clear (Clear) 01/21/18 00:10 Urine pH 6.5 (4.5-7.5) 01/21/18 00:10 Ur Specific [place] 1.020 (1.000-1.030) 01/21/18 00:10 Urine Protein Negative (Negative) 01/21/18 00:10 Urine Glucose (UA) Negative (Negative) 01/21/18 00:10 Urine Ketones Negative (Negative) 01/21/18 00:10 Urine Blood Negative (Negative) 01/21/18 00:10 Urine Nitrite Negative (Negative) 01/21/18 00:10 Urine Bilirubin Negative (Negative) 01/21/18 00:10 Urine Urobilinogen Negative (Negative) 01/21/18 00:10 Ur Leukocyte Esterase Negative (Negative) 01/21/18 00:10 Diagnostic Findings Chest x-ray showed : 1. Cardiomegaly with no acute cardiopulmonary abnormality. 2. Low lung volumes with bibasilar scarring/atelectasis. 3. There is a questionable nodular density projecting over the right midlung. This may be artifactual. Correlation with a dedicated PA and lateral examination is recommended when the patient is clinically able. EKG as per my interpretation : Rate 70, NSR, first-degree AV block T wave flattening inferior leads, septal infarct CT head: No acute pathology
[2018-01-21] MEDS ORDERED: TRAMADOL HCL 50 MG TABLET PO PRN (02:15)
[2018-01-21] MEDS ORDERED: ACETAMINOPHEN 325 MG TAB PO PRN (02:15)
[2018-01-21] MEDS ORDERED: PROCHLORPERAZINE 5 MG in SYRINGE 4 ML IV PRN (02:15)
[2018-01-21] MEDS ORDERED: INFLUENZA ADMINISTRATION CHARGE ONE (04:00)
[2018-01-21] MEDS ORDERED: PNEUMOCOCCAL POLYSACCHARIDES 25 MCG/0.5 ML VIAL/SYR IM ONE (04:00)
[2018-01-21] MEDS ORDERED: PNEUMOCOCCAL ADMINISTRATION CHARGE ONE (04:00)
[2018-01-21] MEDS ORDERED: INFLUENZA VACCINE HIGH DOSE 65+ 0.5 ML SYR IM ONE (04:00)
[2018-01-21] MEDS: LISINOPRIL 2.5 MG TAB PO SCH ×2 (04:10→08:14)
[2018-01-21] MEDS: SODIUM CHLORIDE 0.45 % 1,000 ML IV SCH ×2 (04:11→20:27)
[2018-01-21] MEDS: HALOPERIDOL LACTATE 5 MG/ML 1 ML VIAL IM PRN ×2 (04:14→10:22)
[2018-01-21 05:52] LABS: Basophils # (auto) 0.03 K/uL (0-0.2); Basophils % (auto) 0.4 %; Eosinophils # (auto) 0.11 K/uL (0-0.5); Eosinophils % (auto) 1.5 %; Hematocrit (blood only) 33.8 % (42-52); Hemoglobin 11.2 g/dL (14.0-18.0); Immature Granulocytes # (auto) 0.01 K/uL (0.00-0.02); Immature Granulocytes % (auto) 0.1 %; Lymphocytes # (auto) 1.22 K/uL (1.2-3.4); Lymphocytes % (auto) 16.2 %; Mean Corpuscular Hgb Conc 33.1 g/dL (32-36); Mean Corpuscular Volume 94.4 fL (80-100); Mean Platelet Volume 10.9 fL (7.4-10.4); Monocytes # (auto) 0.83 K/uL (0.11-0.59); Neutrophils # (auto) 5.34 K/uL (1.4-6.5); Neutrophils % (auto) 70.8 %; Platelet Count 182 K/uL (130-400); RDW Standard Deviation 45.1 fL (36.4-46.3); Red Blood Count 3.58 M/uL (4.7-6.1); White Blood Count 7.54 K/uL (4.8-10.8)
[2018-01-21] MEDS: MULTIVITAMIN TAB PO SCH (08:10)
[2018-01-21] MEDS: CYANOCOBALAMIN 500 MCG TABLET (VITAMIN B-12) PO SCH (08:10)
[2018-01-21] MEDS: SERTRALINE HCL 50 MG TABLET PO SCH (08:11)
[2018-01-21] MEDS: FLUTICASONE PROPIONATE NA SPR 16 GM BTL SCH (08:24)
[2018-01-21] MEDS: ENOXAPARIN INJ 30 MG/0.3 ML SYR SQ SCH (08:26)
--- NOTE | 2018-01-21 14:36 | XRay Report ---
XR chest 1V not portable CLINICAL HISTORY: 87 years-old Male presenting with post-operative coughing and wheezing. TECHNIQUE: Portable upright AP view of the chest was obtained. COMPARISON: 01/20/2018. FINDINGS: Cardiomediastinal silhouette normal. Hazy asymmetric left lung opacity with bronchial wall thickening and left basilar bandlike opacity. No large effusion or pneumothorax. Degenerative changes of the th oracic spine. Upper abdomen normal. IMPRESSION: 1. Left lung infiltrate suspected with left basilar atelectasis. Asymmetric edema or aspiration sintia ot be excluded. Consider chest CT if clinically appropriate. Electronically signed by: Donaldo Luther M.D. 01/21/2018 2:35 PM
--- NOTE | 2018-01-21 14:37 | XRay Report ---
XR cervical spine 2 or 3V HISTORY: Scoliosis L deviation COMPARISON: None. FINDINGS: The cervical spine is visualized from C1 through the superior endplate of T1. There is no f racture. No subluxation. Disc spaces are preserved. Prevertebral soft tissues and the atlantodens in terval are intact. Considerable degenerative disc change throughout. Scoliosis. Calcification of rankin tid vasculature. IMPRESSION: 1. Scoliosis possibly related to muscular spasm. Degenerative change of the entire cervical region. C alcification of the carotid vasculature. The above report was generated using voice recognition software. It may contain grammatical, syntax or spelling errors. Electronically signed by: Mukul Crystal M.D. 01/21/2018 2:36 PM
--- NOTE | 2018-01-21 15:30 | Hospitalist Progress Note ---
Date of Service January 21, 2018 Assessment & Plan (1) Dementia: h/o dementia with aggressive behavior. Presented with prolonged psychotic episode and has not regained mental clarity today. Will discuss baseline mental status with family when able. Of note, repeat chest x-ray today revealed left lung opacity consistent with possible pneumonia. This was not seen on chest x-ray yesterday may not be the original cause of confusion. As it is now present will perform blood cultures and start empiric antibiotics at this time. Long-term plan is placement into [facility] per family. Appreciate case management assistance with this. (2) Pneumonia: Single view chest x-ray yesterday revealed no acute cardiopulmonary abnormality with a questionable nodular density projecting over the right mid lung that may be possible artifact. The patient went for repeat chest x-ray today however a lateral exam was not performed. This nodular density was not commented on however there was a new left lung infiltrate suspected with left basilar atelectasis. Aspiration pneumonia is a possibility with aggressive behavior and altered mental mentation. Will perform blood cultures and begin empiric antibiotics. (3) Hypertension: Elevated blood pressure on admission likely secondary to agitation. Lisinopril was restarted at 2.5 mg daily. Patient has a history of hypertension with discontinuation of outpatient blood pressure medications secondary to fall concern for a couple of months ago. Continue lisinopril 2.5 daily for now. (4) DVT prophylaxis: Subjective 87-year-old man with history of Lewy body dementia presented to the ER with family after an episode of confusion that was prolonged from typical episodes as well as agitation. Episodes noted to last 30 minutes had persisted for many hours. Patient admitted to suicidal ideations as well as wanting to go outside and be, a dog. On arrival he was hemodynamically stable and afebrile oxygenating well on room air he was not in acute distress and was admitted to the hospitalist service. Overnight he became aggressive with nursing staff and required Haldol, but was calm after this. He is tolerating food per nursing staff and worked with PT and OT today. Lab work this morning revealed unremarkable CBC and urine was tested and was clear. Chest x-ray revealed no pneumonia yesterday, however, on repeat chest x-ray today in left lung infiltrate was seen. Currently the patient is resting comfortably in bed and awakens to voice but is unable to focus on me. He generally lifts his head and arm inappropriately, and then falls back asleep. He is unable to answer questions or accomplish review of systems. Physical Exam 2 Vital Signs (Past 24 Hours): Last Vital Signs Temp 36.3 C L 01/21/18 08:34 Pulse 80 01/21/18 08:18 Resp 18 01/21/18 08:18 BP 152/67 H 01/21/18 08:18 Pulse Ox 94 01/21/18 08:34 CONSTITUTIONAL: WNWD, vitals as above, altered EYES: normal conjuctivae, no scleral icterus ENT: MMM RESPIRATORY: limited exam as pt is supine and unable to follow instructions. clear to auscultation bilaterally, no crackles, rales or wheezes, normal respiratory effort CARDIOVASCULAR: regular rate and rhythm, S1 and 2 heard without murmurs, gallops or rubs, no JVD, no peripheral edema GASTROINTESTINAL: soft, nontender, nondistended MUSCULOSKELETAL: cannot exam 2/2 altered mental state SKIN: warm and dry, multiple small cuts on shins bilaterally, well-healing. NEUROLOGIC: altered, opens eyes to voice. Results & Data Laboratory Results Short CBC 01/20/18 01/21/18 Range/Units 22:40 05:35 WBC 6.74 7.54 (4.8-10.8) K/uL Hgb 11.4 L 11.2 L (14.0-18.0) g/dL Hct 35.2 L 33.8 L (42-52) % Plt Count 142 182 (130-400) K/uL BMP 01/20/18 22:40 Sodium 145 Potassium 4.5 Chloride 108 H Carbon Dioxide 26 BUN 31 H Creatinine 1.24 Glucose 96 Calcium 9.0 Cardiac Enzymes 01/20/18 Range/Units 22:40 Troponin I < 0.015 (0-0.045) ng/ml Liver Function 01/20/18 Range/Units 22:40 Total Bilirubin 0.4 (0.1-1) mg/dl AST 17 (15-37) U/L ALT 22 (12-78) U/L Alkaline Phosphatase 94 (45-117) U/L Albumin 3.6 (3.4-5.0) gm/dl Urine 01/21/18 Range/Units 00:10 Urine Color Yellow Urine Appearance Clear (Clear) Urine pH 6.5 (4.5-7.5) Ur Specific [place] 1.020 (1.000-1.030) Urine Protein Negative (Negative) Urine Glucose (UA) Negative (Negative) Diagnostic Findings CXR 1V: (01/21): IMPRESSION: 1. Left lung infiltrate suspected with left basilar atelectasis. Asymmetric edema or aspiration cannot be excluded. Consider chest CT if clinically appropriate. _ (1) Dementia Alzheimer's disease onset: Dementia behavioral disturbance: with behavioral disturbance Dementia type: Lewy body dementia Qualified Code(s): G31.83 - Dementia with Lewy bodies; F02.81 - Dementia in other diseases classified elsewhere with behavioral disturbance
[2018-01-21] MEDS ORDERED: [UNRECOGNIZED DRUG - REMARK] PRN (18:37)
[2018-01-21] MEDS: AMPICILLIN/SULBACTAM SOD 3,000 MG in 0.9 % SODIUM CHLORIDE 100 ML IV SCH (19:13)
[2018-01-22] MEDS: AMPICILLIN/SULBACTAM SOD 3,000 MG in 0.9 % SODIUM CHLORIDE 100 ML IV SCH ×4 (01:35→18:26)
[2018-01-22 07:21] LABS: Hematocrit (blood only) 37.2 % (42-52); Hemoglobin 12.2 g/dL (14.0-18.0); Mean Corpuscular Hgb Conc 32.8 g/dL (32-36); Mean Corpuscular Volume 93.9 fL (80-100); Platelet Count 210 K/uL (130-400); RDW Coefficient of Variation 13.2 % (11.5-14.5); RDW Standard Deviation 45.4 fL (36.4-46.3); Red Blood Count 3.96 M/uL (4.7-6.1); White Blood Count 8.41 K/uL (4.8-10.8)
[2018-01-22 07:50] LABS: BUN Creatinine Ratio 23.8 (10-20); Calcium 8.9 mg/dl (8.5-10.1); Creatinine Clr Calc Pharmacy 50.2 ml/min; Est GFR (African American) 69.8; Est GFR (Non-African American) 60.2; Potassium 3.9 mmol/L (3.5-5.1)
[2018-01-22] MEDS: CYANOCOBALAMIN 500 MCG TABLET (VITAMIN B-12) PO SCH (08:17)
[2018-01-22] MEDS: MULTIVITAMIN TAB PO SCH (08:17)
[2018-01-22] MEDS: SERTRALINE HCL 50 MG TABLET PO SCH (08:18)
[2018-01-22] MEDS: LISINOPRIL 2.5 MG TAB PO SCH (08:18)
[2018-01-22] MEDS: FLUTICASONE PROPIONATE NA SPR 16 GM BTL SCH (08:21)
[2018-01-22] MEDS: ENOXAPARIN INJ 30 MG/0.3 ML SYR SQ SCH (08:22)
--- NOTE | 2018-01-22 10:10 | Clinical Documentation Query ---
CLINICAL DOCUMENTATION QUERY Dr. THOMPSON, In your clinical opinion is this patient being managed for: ( ) Metabolic encephalopathy ( ) Not Agree ( x ) Other explanation of clinical findings- Dementia, end stage ( ) Unable to determine ( ) Need to Discuss (Phone CDS or qliq) (No discussion is considered a No Response) The medical record reflects the following clinical findings, treatment, and risk factors. Clinical Indicators: 87 yo male presenting with worsening confusion. CT head negative for acute changes. Repeat CXR: Left lung infiltrate suspected with left basilar atelectasis. Treatment: OBS status to full admit, IV unasyn, 1:1 OBS Risk Factors: suspected pneumonia, preexisting lewy body dementia Please clarify and document your clinical opinion in the progress notes and discharge summary. Terms such as "probable", "suspected", "likely", "questionable", "possible", or "still to be ruled out" are acceptable. IF IN AGREEMENT, YOU MUST DOCUMENT ABOVE DIAGNOSTIC STATEMENT IN DAILY PROGRESS NOTES AND DISCHARGE SUMMARY. This document is not part of the patient' s record. Thank You, Madeline Goode, RN [phone] [facility]ITAL[facility]
--- NOTE | 2018-01-22 15:23 | Hospitalist Progress Note ---
Date of Service January 22, 2018 Assessment & Plan (1) Lewy body dementia with behavioral disturbance: Admitted for placement. Since yesterday morning he has been calm and cooperative. He is eating and not resisting staff. Some improvement to baseline mental status per description by tamiko. Baseline is described as poor verbal communication ability, repeating words especially those at the end of the sentence he hears. Episodes of behavioral aggression have been increasing in frequency and length of time over the past couple of months to the point he cannot be cared for at home. There is no clear underlying metabolic disturbance that is driving this--may just be the dementia process. Consulted Neurology to help shed some light. Still on Unasyn for possible aspiration pneumonia seen on repeat CXR after episode yesterday morning. Possible this may be helping? Multiple medications discontinued today by me after speaking with his grandson. No real changes on or off the sertraline. Lisinopril was a problem in the past causing frequent falling. Unsure of the benefits of B12 supplementation and daily multivitamins as he is eating very well. Lastly, he does have some evidence of torticollis and may be experiencing pain from this or arthritis which has plagued him in the past. Will empirically treat him for pain with 24/7 scheduled Tylenol and monitor for improvement. If too fatigued on this dose, will decrease. Referral/evaluation from [facility] pending. (2) Pneumonia: Poss 2/2 aspiration during agitation episode. Continues on Unasyn until clinically improved and stable. blood cultures pending. (3) Hypertension: Elevated blood pressure on admission likely secondary to agitation. Lisinopril was restarted at 2.5 mg daily. Patient has a history of hypertension with discontinuation of outpatient blood pressure medications secondary to fall concern for a couple of months ago. DC lisinopril now. (4) DVT prophylaxis: Lovenox DNR-confirmed with tamiko by phone tonight. Dispo-to SNF vs dementia unit when medically stable and accepted. Spoke with Brigido morrison, by phone tonight for 30 minutes. Explained all plans and all questions were answered. Naomi Joel DO [facility] Hospitalist Subjective 87-year-old man with Lewy body dementia presents to the hospital for increased agitation, uncontrollable by family. He is awaiting placement. Mental status appears to be clearing and is at baseline. Spoke with Brigido morrison this evening by phone. Patient is tolerating p.o. Review of systems is unobtainable secondary to dementia. No episodes of agitation overnight. Physical Exam 2 Vital Signs (Past 24 Hours): Last Vital Signs Temp 36.4 C L 01/22/18 06:21 Pulse 70 01/22/18 06:21 Resp 18 01/22/18 06:21 BP 138/73 01/22/18 06:21 Pulse Ox 97 01/22/18 06:21 CONSTITUTIONAL: WNWD, vitals as above, altered EYES: normal conjuctivae, no scleral icterus, PERRL ENT: MMM RESPIRATORY: limited exam as pt is supine and unable to follow instructions. clear to auscultation bilaterally, no crackles, rales or wheezes, normal respiratory effort CARDIOVASCULAR: regular rate and rhythm, S1 and 2 heard without murmurs, gallops or rubs, no JVD, no peripheral edema GASTROINTESTINAL: soft, nontender, nondistended MUSCULOSKELETAL: cannot exam 2/2 altered mental state SKIN: warm and dry, multiple small cuts on shins bilaterally, well-healing. NEUROLOGIC: altered, opens eyes to voice. Results & Data Laboratory Results Short CBC 01/22/18 Range/Units 07:04 WBC 8.41 (4.8-10.8) K/uL Hgb 12.2 L (14.0-18.0) g/dL Hct 37.2 L (42-52) % Plt Count 210 (130-400) K/uL BMP 01/22/18 07:04 Sodium 143 Potassium 3.9 Chloride 109 H Carbon Dioxide 23 BUN 26 H Creatinine 1.11 Glucose 83 Calcium 8.9
--- NOTE | 2018-01-22 17:27 | Consultation Report ---
DATE OF CONSULTATION: 01/22/2018 Consult for Naomi Joel DO. LOCATION: He is in room 275. HISTORY OF PRESENT ILLNESS: Lane is an 87 [address] old patient of Dr. Andrew Ty and was admitted yesterday for evaluation of increasing agitation and confusion which probably began last week. Unfortunately, no family members are present in the room. He is now pretty sedated after having a lot of agitation last night and is on 1:1 nursing. So evaluation is obtained purely from review of the recorded history. He apparently has a history of dementia, although looking through his home medications, there is no evidence that he is currently on Aricept or Namenda, although he may have been on them in the past and they were ineffective.or he could not tolerate them He is said to have hypertension. He has prostate cancer status post radiation, although I do not know the Jeanne score or staging. He has chronic anemia and he has an admission abnormal chest x-ray showing what may be an aspiration pneumonia. Currently, there is no clear explanation for his increasing agitation other than perhaps a pneumonitis. Apparently, the records indicate he was having hallucinations as well as the agitation and outpatient urinalysis to ensure infection. Family became alarmed and was beginning to talk about placement at [facility]. All things accelerated to the point yesterday he had to be brought in the hospital but there was still no fever, no chills, no history of rigors. No history of cough, hemoptysis or any other issues that I can obtain from the chart. He was on lisinopril up until a few months ago when the medication was stopped due to what was assumed to be some orthostasis. Several weeks ago, he was noted to have some neck deviation to the left from physical therapy and there was some talk of Botox injections. PAST SURGICAL HISTORY: Surgically, he has had hernia repair, multiple urologic procedures and radiation for prostate cancer. FAMILY HISTORY: Positive for "blood clots, although I do not know the details." SOCIAL HISTORY: Reveals him to be a nonsmoker, nonconsumer of ethanol. 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 ALLERGIES: HE HAS ALLERGIES TO OXYBUTYNIN AND SEROQUEL, the latter producing of apparently significant lethargy and the oxybutynin probably producing some confusion and agitation due to anticholinergic effects. Upon review of his [facility] outpatient chrt Aricept is listed as an allergy although I cannot ascertain the reaction CURRENT HOME MEDICATIONS: Include acetaminophen, B12, Nasonex, ranitidine, sertraline, multivitamins and vitamin C, E, zinc; copper, Lutein and Zeaxan in the form of preservation for what I assume is some macular degeneration The only diagnosis that I can find on the chart regarding his dementia indicates it is a Lewy body dementia which might explain some of the ongoing agitation and some of the parkinsonian features are evident at the bedside today The outpatient chart however mentions only a mixed dementia so the Lewy Body diagnosis may be incorrect. We have been asked to see him by Naomi Joel because of his lack of clear cut explanation for his apparent step off in his overall mental status. REVIEW OF SYSTEMS: Really could not be obtained from the patient either by Dr. Barnes, the admitting physician or myself today, but the important points to indicate a lack of obvious signs of a systemic infection. PHYSICAL EXAMINATION: VITAL SIGNS: Revealed temperature 37, pulse 77, respirations were 18, blood pressure 166/88, pulse oximetry was 95. GENERAL: He was a demented man who appeared to be comfortable but was restless. SKIN: Free of cyanosis and was warm and dry. HEENT: Revealed no abnormalities. NECK: Supple. CHEST: Chest wall was free of deformities. There was no tenderness. HEART: Had a regular rhythm without murmurs. ABDOMEN: Soft, nontender. EXTREMITIES: Free of edema. NEUROLOGIC: He is very lethargic. He has a lot of rigidity. There is some gegenhalten. He can open his eyes, he does a lot of echolalia, will repeat words continuously once stated. He nods affirmatively to most questions even though they are clearly erroneous. He has what appears to be normal eye movements, although exam is difficult because he keeps his eyes closed. I need to force them open. Speech is monotonous and low volume. Again, there is generalized bradykinesia and rigidity. I do not see any parkinsonian tremor. Reflexes are difficult to elicit, they are present but with a poor relaxation they are hard to rate and toes are downgoing. No Shayna signs are seen. Strength testing appears to be grossly intact. Sensation really cannot be assessed. LABORATORY STUDIES AND IMAGING: As outlined in the chart indicate no significant leukocytosis. No significant electrolyte abnormalities, but the chest x-ray does show a nodular density over the right mid lung field and a repeat x-ray suggests an aspiration pneumonia and he has now been placed on ampicillin. EKG does show a rate of 70, first-degree AV block. CT of the head was interpreted to show atrophy, perhaps some white matter changes but nothing acute and certainly nothing for subdural hematoma. ASSESSMENT AND PLAN: At this point, I suspect this man does have a dementia perhaps indeed Lewy Body in light of the emerging rigidity and hallucinations but the record indicates a mixed picture and aricept which can elp lewy body was not tolerated Parkinson medications often make it worse and this may explain why he is not on them deapite his emerging rigidity I think he does have a delirium likely due to his pneumonia and whether this is an aspiration or not is an academic question. He is now quite somnolent after a night of apparently agitation and some diarrheal stools. I will check him tomorrow and perhaps will be a little more history available and I need to get on the [facility] chart, look through his records and establish the true diagnosis here and review some of the history. For now, however, I would not change anything other than the use of Haldol judiciously and perhaps get psychiatry involved if the level of agitation is not improved with treatment of his infection. Social service needs to get involved as apparently the family is currently interested in potential placement. MIRIAN
[2018-01-22] MEDS: ACETAMINOPHEN 500 MG TAB PO SCH (18:26)
[2018-01-23] MEDS: AMPICILLIN/SULBACTAM SOD 3,000 MG in 0.9 % SODIUM CHLORIDE 100 ML IV SCH ×4 (01:24→19:31)
[2018-01-23] MEDS: ACETAMINOPHEN 500 MG TAB PO SCH ×3 (03:16→20:32)
[2018-01-23] MEDS: ENOXAPARIN INJ 30 MG/0.3 ML SYR SQ SCH (11:02)
--- NOTE | 2018-01-23 13:12 | Hospitalist Progress Note ---
Date of Service January 23, 2018 Assessment & Plan (1) Lewy body dementia with behavioral disturbance: Admitted for placement. Continues to remain calm and is drowsy likely secondary to scheduled Tylenol that was started yesterday to treat empiric pain. Continues on every 15 minute checks. To drowsy to swallow pills or eat breakfast this morning but had been reliably eating. Will decrease Tylenol level by 50%. Appeared to be at baseline mental status per description by tamiko yesterday. Still on Unasyn for possible aspiration pneumonia. We will continue treatment course for pneumonia at this time. Multiple medications were discontinued including sertraline, lisinopril, B12 supplementation and daily multivitamins. Flonase was also stopped. Referral to [facility] is pending. Continue empiric Tylenol (2) Pneumonia: Poss 2/2 aspiration during agitation episode. Continue on Unasyn for now. Blood cultures preliminarily negative (3) Hypertension: No elevated blood pressure overnight despite discontinuation of lisinopril. Of note this may be an effect of the Tylenol in controlling pain. Continue to monitor. (4) DVT prophylaxis: Lovenox DNR-confirmed with tamiko by phone Dispo-to SNF vs dementia unit when medically stable and accepted. Naomi Joel DO [facility] Hospitalist Subjective 87-year-old man with Lewy body dementia. Mostly sleepy and somnolent overnight and through this morning likely secondary to Tylenol started last night for empiric treatment of pain. Continue with reduced dose of Tylenol starting this evening. Review of systems is unobtainable secondary to somnolence. Per nursing staff patient did not eat breakfast or take morning meds secondary to somnolence. Physical Exam 2 Vital Signs (Past 24 Hours): Last Vital Signs Temp 36.4 C L 01/23/18 07:04 Pulse 57 L 01/23/18 07:04 Resp 20 01/23/18 07:04 BP 133/77 01/23/18 07:04 Pulse Ox 96 01/23/18 07:04 CONSTITUTIONAL: WNWD, vitals as above, altered, somnolent EYES: normal conjuctivae, no scleral icterus, pupils are round and equal bilaterally ENT: MMM RESPIRATORY: CTAB (limited 2/2 mental status) CARDIOVASCULAR: regular rate and rhythm, S1 and 2 heard without murmurs, gallops or rubs, no JVD, no peripheral edema GASTROINTESTINAL: soft, nondistended MUSCULOSKELETAL: cannot exam 2/2 altered mental state SKIN: warm and dry, multiple small cuts on shins bilaterally, well-healing. NEUROLOGIC: somnolent
--- NOTE | 2018-01-23 14:42 | Progress Note ---
DATE: 01/23/2018 I saw Lane today. Discussed his case by telephone with Naomi Joel, but unfortunately no family members are present in the room for me to check back on his history and on chart review, it appears that this dementia has been coming on for quite a number of years. It has been variably diagnosed. Currently, he is classified as a mixed dementia, but there are features that suggest Lewy body disease with a lot of hallucinations and some rigidity. He apparently did poorly on Aricept, which would have been the treatment of choice for Lewy body disease and could not tolerate Sinemet. although the reasons for this are not clear. The issues to some degree are academic as tretment at this point is supportive only with behavioral control as needed His CT scan shows only a modest degree of leukoencephalopathy and atrophy compatible with age. His laboratory studies have shown very little in terms of leukocytosis or any metabolic disturbances, but he does have an aspiration pneumonia perhaps related to his period of agitation. He is on Unasyn. He is on [id number] Tylenol, which is now being reduced thinking that this may be a cause of his sedation and many of his medications have been pulled including apparently sertraline, Flonase, lisinopril, B12 supplementation and daily multivitamins. Unfortunately, he remains somnolent this afternoon. I can arouse him with a great degree of difficulty. He will open his eyes and make eye contact. I do not see any gross cranial nerve deficits. He seems to respond to visual threat equally and he will squeeze both my hands equally to command. I can get him to withdraw his legs, but in terms of verbal output all I can get is the same echolalia that I obtained yesterday. He perseverates thus and when I asked him if he felt okay, he kept repeating "okay, okay, okay." He remains despite his somnolent state very rigid but has no tremor and only gegenhalten rather than ocgwheel regidity At this point, I continue to feel this is a delirium, but he has accelerated into this and there is no obvious cause other than the potential pneumonia, so I am going to check an EEG just to be sure there is not any evidence for subclinical seizure activity. If he persists in this and we do not have any other explanation, we may have to do an MRI to be sure he does not have an embolic shower or an infectious process that might be detectable, but clinically, he has no obviousl source of cerebral emboli ( eks shows normal sinus rhythm), and he really does not have anything that looks like a meningitis or encephalitis at this point. Furthermore he is a DNR has an end stage dementing illness that is untreatable so a very aggressive diagnostic approach is simply not appropriate here I will check back with him tomorrow after the EEG is done. MIRIAN
[2018-01-24] MEDS: AMPICILLIN/SULBACTAM SOD 3,000 MG in 0.9 % SODIUM CHLORIDE 100 ML IV SCH ×2 (00:55→06:42)
[2018-01-24] MEDS: ACETAMINOPHEN 500 MG TAB PO SCH ×3 (04:36→21:25)
[2018-01-24] MEDS: ENOXAPARIN INJ 40 MG/0.4 ML SYR SQ SCH (10:12)
--- NOTE | 2018-01-24 10:55 | Hospitalist Progress Note ---
Date of Service January 24, 2018 Assessment & Plan (1) Lewy body dementia with behavioral disturbance: Admitted for placement. Appears to be doing well on the scheduled Tylenol 500mg PO [id number] drowsy on the 1000mg dose. Tolerating PO without issue. Ambulated today. Appears to be at basleine mental status. Awaiting placement. (2) Pneumonia: Poss 2/2 aspiration during agitation episode. Unasyn changed to Augmentin (3) Hypertension: Somewhat uncontrolled over last 24 hours after discontinuation of lisinopril. (4) DVT prophylaxis: Lovenox DNR-confirmed with grandson by phone Dispo-to SNF vs dementia unit when medically stable and accepted. Naomi Joel DO [facility] Hospitalist Subjective 87-year-old man with Lewy body dementia. Less somnolence on the lower scheduled dose of tylenol. Ambulated today, tolerating PO. . Physical Exam 2 Vital Signs (Past 24 Hours): Last Vital Signs Temp 36.7 C 01/24/18 07:07 Pulse 83 01/24/18 07:07 Resp 18 01/24/18 07:07 BP 161/70 H 01/24/18 07:07 Pulse Ox 97 01/24/18 07:07 CONSTITUTIONAL: WNWD, vitals as above, somnolent, disoriented, minimal verbal response to questioning. EYES: normal conjuctivae, no scleral icterus, pupils are round and equal bilaterally ENT: MMM RESPIRATORY: CTAB (limited 2/2 mental status) CARDIOVASCULAR: regular rate and rhythm, S1 and 2 heard without murmurs, gallops or rubs, no JVD, no peripheral edema GASTROINTESTINAL: soft, nondistended MUSCULOSKELETAL: cannot exam 2/2 altered mental state NEUROLOGIC: somnolent
--- NOTE | 2018-01-24 11:21 | Procedure Note ---
EEG Procedure Note Date of Service January 24, 2018 Start / End Times Start Time: 823 End Time: 843 Referring Physician Mac Huffman MD History KNown dementia now with progressive obtundation Home Medication List Home Medications Medication Instructions Recorded Confirmed Type acetaminophen [Tylenol] 650 mg PO Q4 PRN 11/13/17 01/21/18 History cyanocobalamin (vitamin B-12) 1,000 mcg PO DAILY 11/13/17 01/21/18 History [Vitamin B-12] mometasone [Nasonex] 2 spray INTRANASAL DAILY PRN 11/13/17 01/21/18 History ranitidine HCl 150 mg PO DAILY 11/13/17 01/21/18 History sertraline 25 mg PO DAILY 11/13/17 01/21/18 History multivitamin 1 tab PO DAILY 01/21/18 01/21/18 History vit C,H-Io-ixdks-lutein-zeaxan 2 tab PO DAILY 01/21/18 01/21/18 History [PreserVision AREDS-2] Inpatient Medication List Acetaminophen (Tylenol) 500 mg PO Q8H SWATI Stop: 02/22/18 20:59 Last Admin: 01/24/18 04:36 Dose: 500 mg Admin: 01/23/18 20:32 Dose: 500 mg Enoxaparin Sodium (Lovenox) 40 mg SQ QAM SWATI Stop: 02/23/18 08:59 Last Admin: 01/24/18 10:12 Dose: 40 mg Haloperidol Lactate (Haldol) 2 mg IM Q2H PRN PRN Reason: Agitation Stop: 02/20/18 02:14 Last Admin: 01/21/18 10:22 Dose: 2 mg Admin: 01/21/18 04:14 Dose: 2 mg Discontinued Medications Acetaminophen (Tylenol) 1,000 mg PO Q8H WSATI Stop: 02/21/18 17:59 Last Admin: 01/23/18 11:01 Dose: Not Given Admin: 01/23/18 03:16 Dose: Not Given Admin: 01/22/18 18:26 Dose: 1,000 mg Cyanocobalamin (Vitamin B-12) 1,000 mcg PO DAILY SWATI Stop: 02/20/18 08:59 Last Admin: 01/22/18 08:17 Dose: 1,000 mcg Admin: 01/21/18 08:10 Dose: 1,000 mcg Enoxaparin Sodium (Lovenox) 30 mg SQ QAM SWATI Stop: 02/20/18 08:59 Last Admin: 01/23/18 11:02 Dose: 30 mg Admin: 01/22/18 08:22 Dose: 30 mg Admin: 01/21/18 08:26 Dose: 30 mg Fluticasone Propionate (Flonase) 2 sprays NA DAILY SWATI Stop: 02/20/18 08:59 Last Admin: 01/22/18 08:21 Dose: 2 sprays Admin: 01/21/18 08:24 Dose: 2 sprays Haloperidol Lactate (Haldol) 2.5 mg IV NOW STA Stop: 01/21/18 00:07 Last Admin: 01/21/18 01:09 Dose: 2.5 mg Sodium Chloride (1/2 Nss) 1,000 mls @ 60 mls/hr IV .[id number] SWATI Stop: 02/20/18 02:14 Last Infusion: 01/22/18 07:33 Dose: 0 mls/hr Infusion: 01/22/18 06:42 Dose: 60 mls/hr Infusion: 01/22/18 06:11 Dose: 0 mls/hr Infusion: 01/22/18 02:12 Dose: 60 mls/hr Infusion: 01/22/18 01:35 Dose: 0 mls/hr Admin: 01/21/18 20:27 Dose: 60 mls/hr Infusion: 01/21/18 20:27 Dose: 0 mls/hr Infusion: 01/21/18 19:18 Dose: 0 mls/hr Admin: 01/21/18 04:11 Dose: 60 mls/hr Ampicillin Sodium/Sulbactam Sodium 3,000 mg/ Sodium Chloride 108 mls @ 200 mls/ hr IV Q6H SWATI; Protocol Stop: 01/28/18 18:59 Last Infusion: 01/24/18 07:15 Dose: 0 mls/hr Admin: 01/24/18 06:42 Dose: 200 mls/hr Infusion: 01/24/18 01:30 Dose: 0 mls/hr Admin: 01/24/18 00:55 Dose: 200 mls/hr Infusion: 01/23/18 20:09 Dose: 0 mls/hr Admin: 01/23/18 19:31 Dose: 200 mls/hr Infusion: 01/23/18 15:49 Dose: 0 mls/hr Admin: 01/23/18 14:10 Dose: 200 mls/hr Infusion: 01/23/18 07:08 Dose: 0 mls/hr Admin: 01/23/18 06:28 Dose: 200 mls/hr Infusion: 01/23/18 01:58 Dose: 0 mls/hr Admin: 01/23/18 01:24 Dose: 200 mls/hr Infusion: 01/22/18 19:12 Dose: 0 mls/hr Admin: 01/22/18 18:26 Dose: 200 mls/hr Infusion: 01/22/18 14:33 Dose: 0 mls/hr Admin: 01/22/18 14:01 Dose: 200 mls/hr Infusion: 01/22/18 06:42 Dose: 0 mls/hr Admin: 01/22/18 06:09 Dose: 200 mls/hr Infusion: 01/22/18 02:12 Dose: 0 mls/hr Admin: 01/22/18 01:35 Dose: 200 mls/hr Infusion: 01/21/18 20:27 Dose: 0 mls/hr Admin: 01/21/18 19:13 Dose: 200 mls/hr Influenza Virus Vaccine (Fluzone High-Dose Pf) 0.5 ml IM .ONCE ONE Stop: 01/21/18 04:01 Last Admin: 01/21/18 17:57 Dose: Not Given Lisinopril (Zestril) 2.5 mg PO QAM [facility] Stop: 02/20/18 01:29 Last Admin: 01/22/18 08:18 Dose: 2.5 mg Admin: 01/21/18 08:14 Dose: 2.5 mg Admin: 01/21/18 04:10 Dose: Not Given Multivitamins (Multivitamin) 1 tab PO DAILY [facility] Stop: 02/20/18 08:59 Last Admin: 01/22/18 08:17 Dose: 1 tab Admin: 01/21/18 08:10 Dose: 1 tab Pneumococcal Polyvalent Vaccine (Pneumovax-23) 25 mcg IM .ONCE ONE Stop: 01/21/18 04:01 Last Admin: 01/21/18 17:59 Dose: Not Given Ranitidine HCl (Zantac) 150 mg PO DAILY [facility] Stop: 02/20/18 08:59 Last Admin: 01/22/18 08:18 Dose: 150 mg Admin: 01/21/18 08:11 Dose: 150 mg Sertraline HCl (Zoloft) 25 mg PO DAILY [facility] Stop: 02/20/18 08:59 Last Admin: 01/22/18 08:18 Dose: 25 mg Admin: 01/21/18 08:11 Dose: 25 mg Description This is a 21 electrode EEG with a single channel dedicated to limited EKG. The electrodes were placed in accordance with the International 10-20 system.This study was dne at the [facility] with simultaneous video recording of movement and behavior photic stimulation was also done Initially there are numerous movement artefacts but as the tracing progresses these disappear and the pattern is quite interpretable/ The study was done during wakefulness drowsiness and sleep are not clearly recorded but the video recording only reveals a man whose eyea are closed and is non verbal Under these conditions thre is evidence for a normal background alpha rhythm seen symmetrically in posterior head regions, a slight accentuation of lower frequence theta and rare delta waves in the central regions and bilaterally symmetraical low voltage alpha bifrontally. There is no evidence for potentially epileptogenic patterns and no lateralized slow wave activity Photic stimulation induces no important changes Interpretation At most a mildly slow eeg during wakefulness with no evidence for potentially epileptogenic patterns and no lateralizing features Clinical Correlation Mildly diffusely abnormal eeg consitent with at most a mild nonfocal encephalopathy without epileptogenic features Mac Huffman MD
--- NOTE | 2018-01-24 16:57 | Progress Note ---
DATE: 01/24/2018 Lane is a little more awake today than he has been. He tries to interact. He makes some sounds, but none of this makes any sense and he is quite rigid. His eyes are open. He will make contact. He responds to visual threat in both lopez. I do not see any facial asymmetry. 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 Whether this is a late stage Lewy body disease or mixed vascular and degenerative dementia or even a Parkinson's disorder with secondary dementia is not clear and is of academic importance only as we really are not going to change treatment. According to the nurse's notes he has been able to go to the bathroom with assistance and apparently he is trying to take some food and according to Dr. Joel's note who discussed the case with his grandson, he is close to his baseline. Many medications have been held. 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 We went ahead with an EEG just to be certain that some of his lethargy was not due to intermittent nonconvulsive seizure activity and this tracing is at most mildly abnormal with slightly excessive amounts of theta activity which in actuality could be normal for a man of this age. There is good background alpha rhythm and theta symmetrical, there is beta activity and of importance is the fact there is no evidence for potentially epileptogenic discharges. At this point, neurology is going to sign off, placement apparently is being investigated specifically in [facility]. He is a do not resuscitate, so I do not think we need to get an any more aggressive in terms of diagnostic studies or treatment at this time. I will be happy to take a look at him again over the weekend if things would change. MIRIAN
[2018-01-24] MEDS: AMOXICILLIN/CLAVULANATE 875 MG TAB PO SCH (17:52)
[2018-01-25] MEDS: ACETAMINOPHEN 500 MG TAB PO SCH ×3 (05:04→20:31)
[2018-01-25 06:19] LABS: Hematocrit (blood only) 39.1 % (42-52); Hemoglobin 12.9 g/dL (14.0-18.0); Mean Corpuscular Volume 92.9 fL (80-100); Mean Platelet Volume 10.8 fL (7.4-10.4); Platelet Count 208 K/uL (130-400); RDW Coefficient of Variation 12.8 % (11.5-14.5); RDW Standard Deviation 43.7 fL (36.4-46.3); Red Blood Count 4.21 M/uL (4.7-6.1); White Blood Count 6.58 K/uL (4.8-10.8)
[2018-01-25 06:46] LABS: BUN Creatinine Ratio 20.9 (10-20); Calcium 8.9 mg/dl (8.5-10.1); Creatinine Clr Calc Pharmacy 41.3 ml/min; Est GFR (African American) 55.1; Est GFR (Non-African American) 47.5; Potassium 3.5 mmol/L (3.5-5.1)
[2018-01-25] MEDS: AMOXICILLIN/CLAVULANATE 875 MG TAB PO SCH ×2 (07:30→17:30)
[2018-01-25] MEDS: ENOXAPARIN INJ 40 MG/0.4 ML SYR SQ SCH (07:30)
[2018-01-25] MEDS: HALOPERIDOL LACTATE 5 MG/ML 1 ML VIAL IM PRN (11:35)
--- NOTE | 2018-01-25 15:45 | Hospitalist Progress Note ---
Date of Service January 25, 2018 Assessment & Plan (1) Lewy body dementia with behavioral disturbance: Admitted for placement. Appears to be doing well on the scheduled Tylenol 500mg PO [id number] drowsy on the 1000mg dose. Tolerating PO without issue. Some overinsistence today with getting up and out of bed multiple times , displaying some aggression with this. Received Haldol today, but one hour later was alert and able to eat lunch. [place] base with grandson prior to this and gave update. (2) Pneumonia: Poss 2/2 aspiration during agitation episode. Unasyn changed to Augmentin (3) Hypertension: Controlled, holding antihypertensives to avoid falls. (4) DVT prophylaxis: Lovenox DNR Dispo-to SNF vs dementia unit when medically stable and accepted. Naomi Joel DO [facility] Hospitalist Subjective 87 yo M with end stage dementia and behavioral disturbance, admitted for placement. Some aggressive behavior today requiring Haldol administration with good response. ROS is unobtainable 2/2 mental status. Physical Exam 2 Vital Signs (Past 24 Hours): Last Vital Signs Temp 36.1 C L 01/25/18 15:04 Pulse 59 L 01/25/18 15:04 Resp 18 01/25/18 15:04 BP 126/69 01/25/18 15:04 Pulse Ox 95 01/25/18 15:04 CONSTITUTIONAL: WNWD, vitals as above, somnolent, disoriented, minimal verbal response to questioning. EYES: normal conjuctivae, PERRL ENT: MMM RESPIRATORY: CTAB (limited 2/2 mental status) CARDIOVASCULAR: regular rate and rhythm, S1 and 2 heard without murmurs, gallops or rubs, no JVD, no peripheral edema GASTROINTESTINAL: soft, nondistended MUSCULOSKELETAL: cannot exam 2/2 altered mental state NEUROLOGIC: somnolent Results & Data Laboratory Results Short CBC 01/25/18 Range/Units 06:02 WBC 6.58 (4.8-10.8) K/uL Hgb 12.9 L (14.0-18.0) g/dL Hct 39.1 L (42-52) % Plt Count 208 (130-400) K/uL BMP 01/25/18 06:02 Sodium 141 Potassium 3.5 Chloride 107 Carbon Dioxide 25 BUN 28 H Creatinine 1.35 Glucose 77 Calcium 8.9
[2018-01-26] MEDS: ACETAMINOPHEN 500 MG TAB PO SCH ×3 (04:40→19:19)
[2018-01-26] MEDS: ENOXAPARIN INJ 40 MG/0.4 ML SYR SQ SCH (07:37)
[2018-01-26] MEDS: AMOXICILLIN/CLAVULANATE 875 MG TAB PO SCH ×2 (07:41→16:58)
--- NOTE | 2018-01-26 13:48 | Hospitalist Progress Note ---
Date of Service January 26, 2018 Assessment & Plan (1) Lewy body dementia with behavioral disturbance: Admitted for placement. Appears to be doing well on the scheduled Tylenol 500mg PO [id number] drowsy on the 1000mg dose. Tolerating PO without issue. No agitation overnight, continues to remain more somnolent than alert but can open his eyes and eat, performing some ADLs without issue. (2) Pneumonia: Poss 2/2 aspiration during agitation episode. Cont Augmentin to complete the course. (3) Hypertension: Controlled, holding antihypertensives to avoid falls. (4) DVT prophylaxis: Lovenox DNR Dispo-to SNF vs dementia unit when medically stable and accepted. [facility] 87[facility]year[facility] man with Lewy body dementia that is progressed. The patient remains at the same mental state. Review of systems is unobtainable secondary to progressive dementia. I am unable to get him to verbally communicate with me today. He stares at me but eyes appear distant. His lips are moving but no words are coming out. He does not appear in any distress. He is able to sit up and reliably eat regular food without issue. He can ambulate with assistance. Awaiting placement. Physical Exam 2 Vital Signs (Past 24 Hours): Last Vital Signs Temp 36.3 C L 01/26/18 07:18 Pulse 52 L 01/26/18 07:18 Resp 20 01/26/18 07:18 BP 133/70 01/26/18 07:18 Pulse Ox 97 01/26/18 07:18 CONSTITUTIONAL: WNWD, vitals as above, somnolent, disoriented, minimal verbal response to questioning. EYES: normal conjuctivae, PERRL ENT: MMM RESPIRATORY: CTAB (limited 2/2 mental status) CARDIOVASCULAR: regular rate and rhythm, S1 and 2 heard without murmurs, gallops or rubs, no JVD, no peripheral edema GASTROINTESTINAL: soft, nondistended MUSCULOSKELETAL: cannot exam 2/2 altered mental state NEUROLOGIC: somnolent PSYCH: open eyes to verbal stimulation, does not make good eye contact, there is no back and forth verbal or nonverbal communication. Lips move but no words. Eyes appear distant
[2018-01-27] MEDS: ACETAMINOPHEN 500 MG TAB PO SCH ×3 (05:08→20:55)
[2018-01-27] MEDS: AMOXICILLIN/CLAVULANATE 875 MG TAB PO SCH ×2 (07:30→16:53)
[2018-01-27] MEDS: ENOXAPARIN INJ 40 MG/0.4 ML SYR SQ SCH (07:30)
--- NOTE | 2018-01-27 17:01 | Hospitalist Progress Note ---
Date of Service January 27, 2018 Assessment & Plan (1) Lewy body dementia with behavioral disturbance: Admitted for placement. Appears to be doing well on the scheduled Tylenol 500mg PO [id number] drowsy on the 1000mg dose. Tolerating PO without issue. No agitation overnight, continues to remain more somnolent than alert but can open his eyes and eat, performing some ADLs without issue. (2) Pneumonia: Poss 2/2 aspiration during agitation episode. Cont Augmentin to complete the 7-day course today. (3) Hypertension: Controlled, holding antihypertensives to avoid falls. (4) Muscle spasm: Neck muscle spasm, scheduled tylenol as above. Considering Botox therapy as outpatient per beth. (5) DVT prophylaxis: Lovenox DNR Dispo-to SNF vs dementia unit when medically stable and accepted. Naomi Joel DO [facility] Hospitalist Subjective 87-year-old man with dementia. Patient physical exam is unchanged today. Altered mental status secondary to dementia without changes. Patient is clinically stable for the last several days. No aggression overnight. Physical Exam 2 Vital Signs (Past 24 Hours): Last Vital Signs Temp 36.8 C 01/27/18 16:32 Pulse 59 L 01/27/18 16:32 Resp 17 01/27/18 16:32 BP 136/69 01/27/18 16:32 Pulse Ox 91 01/27/18 16:32 CONSTITUTIONAL: WNWD, vitals as above, eyes open and starting, nonverbal, doesn 't follow instructions. EYES: normal conjuctivae, pupils are equal bilaterally ENT: MMM RESPIRATORY: CTAB (limited 2/2 mental status) CARDIOVASCULAR: regular rate and rhythm, S1 and 2 heard without murmurs, gallops or rubs, no peripheral edema GASTROINTESTINAL: soft, nondistended MUSCULOSKELETAL: cannot exam 2/2 altered mental state NEUROLOGIC: somnolent PSYCH: open eyes to verbal stimulation, does not make good eye contact, there is no back and forth verbal or nonverbal communication.
[2018-01-27] MEDS ORDERED: AMOXICILLIN/CLAVULANATE 875 MG TAB PO SCH (17:30)
[2018-01-28] MEDS: ACETAMINOPHEN 500 MG TAB PO SCH ×2 (04:57→12:26)
[2018-01-28] MEDS: ENOXAPARIN INJ 40 MG/0.4 ML SYR SQ SCH (07:16)
[2018-01-28] MEDS: POLYETHYLENE (MIRALAX) 17 GM PACK PO SCH (12:25)
--- NOTE | 2018-01-28 16:52 | Hospitalist Progress Note ---
Date of Service January 28, 2018 Assessment & Plan (1) Lewy body dementia with behavioral disturbance: Admitted for placement. Appears to be doing well on the scheduled Tylenol 500mg PO [id number] drowsy on the 1000mg dose. Tolerating PO without issue. No agitation overnight, continues to remain more somnolent than alert but can open his eyes and eat, performing some ADLs without issue. (2) Pneumonia: Poss 2/2 aspiration. Cont Augmentin to complete the 7-day course today. (3) Hypertension: Controlled, (4) Muscle spasm: Neck muscle spasm, scheduled tylenol as above . Considering Botox therapy as outpatient per beth. (5) DVT prophylaxis: Lovenox DNR Dispo waiting for placement -to SNF vs dementia unit Subjective 87-year-old man with dementia. non verbal does not communicate aid present at bedside -assisting in dinner per nursing -pt did not show any evidence of agitation presented with Altered mental status secondary to dementia without changes. Patient is clinically stable for the last several days. No behavioral issues or aggression noted Physical Exam 2 Vital Signs (Past 24 Hours): Last Vital Signs Temp 36.8 C 01/28/18 15:34 Pulse 61 01/28/18 15:34 Resp 18 01/28/18 15:34 BP 144/83 H 01/28/18 15:34 Pulse Ox 94 01/28/18 15:34 Constitutional: + ill appearing and + altered mental status (lethergic , does not communicate ) Eyes: + anicteric sclerae Respiratory: normal respiratory effort; no respiratory distress Cardiovascular: Rate/Rhythm: regular rate and regular rhythm Gastrointestinal (Abdomen): Inspection/Auscultation: abdomen normal to inspection Percussion/Palpation: abdomen soft Skin: + lesion (skin tear noted on rt hand , bandaged ) Neurologic: + confused (unable to follow command ) and + obtunded
[2018-01-28] MEDS ORDERED: ACETAMINOPHEN 500 MG TAB PO PRN (18:35)
--- NOTE | 2018-01-28 19:57 | CT Scan Report ---
CT head/brain wo con CLINICAL HISTORY: 87 years-old Male with changed mental status . Acutely altered mental status TECHNIQUE: Multiple axial CT images of the head were obtained without contrast. A dose lowering tech nique was utilized adhering to the principles of ALARA. CT DOSE: 614.27 mGy.cm COMPARISON: CT head 01/20/2018. FINDINGS: No acute intracranial hemorrhage, midline shift, intracranial mass, hydrocephalus, territorial ischem ia or abnormal extra-axial collection. Moderate atrophy with moderate hypodensity within the white ma tter suggestive of chronic microvascular ischemic changes. The calvarium is intact. The paranasal sinuses, mastoid air cells, and middle ear cavities are clear . IMPRESSION: No acute intracranial abnormality. The above report was generated using voice recognition software. It may contain grammatical, syntax o r spelling errors. Electronically signed by: Krunal Ospina M.D. 01/28/2018 7:56 PM
[2018-01-29] MEDS: ENOXAPARIN INJ 40 MG/0.4 ML SYR SQ SCH (08:33)
[2018-01-29] MEDS: POLYETHYLENE (MIRALAX) 17 GM PACK PO SCH (08:39)
--- NOTE | 2018-01-29 14:46 | Hospitalist Progress Note ---
Date of Service January 29, 2018 Assessment & Plan (1) Lewy body dementia with behavioral disturbance: Advanced dementia no behavioral issues or agitation for past few day did not require any PRN dose of Haldol was Somnolent yesterday CT head : showed no acute change more awake and alert today cont to monitor updated Neurology will no persue for MRI of brain as pt appears to be back to baseline pt is waiting for placement in correction vs dementia unit (2) Pneumonia: Poss 2/2 aspiration. Cont Augmentin to complete the 7-day course today. aspiration precaution diet changed to Pureed complete assistantce in all the meals (3) Hypertension: Controlled, (4) Muscle spasm: Neck muscle spasm, scheduled tylenol as above . Considering Botox therapy as outpatient per beth. (5) DVT prophylaxis: Lovenox DNR Dispo waiting for placement -to SNF vs dementia unit Subjective 87-year-old man with dementia. pt is more awake today ,opening eyes able to says " he is fine " unable to follow command per Nursing -pt has been awake most part of the day has been repeating words " Echolalia " ( present on admission -due to dementia ) ate all his meals Physical Exam 2 Vital Signs (Past 24 Hours): Last Vital Signs Temp 36.7 C 01/29/18 07:44 Pulse 67 01/29/18 07:44 Resp 18 01/29/18 07:44 BP 109/51 L 01/29/18 07:44 Pulse Ox 91 01/29/18 07:44 Constitutional: + ill appearing; no acute distress awake Eyes: + anicteric sclerae Respiratory: normal respiratory effort; no respiratory distress Cardiovascular: Rate/Rhythm: regular rate and regular rhythm Gastrointestinal (Abdomen): Inspection/Auscultation: abdomen normal to inspection Percussion/Palpation: abdomen soft Skin: + lesion (skin tear noted on rt hand , bandaged ) Neurologic: awake and + confused (unable to follow command ) Speech / Cognition: + abnormal cognition (Dementia )
[2018-01-29] MEDS ORDERED: SOD PHOSPHATE/SOD BIPHOSPHATE ENEMA 132 ML BTL PR PRN (17:33)
[2018-01-29] MEDS: HALOPERIDOL LACTATE 5 MG/ML 1 ML VIAL IM PRN (21:24)
[2018-01-30] MEDS: ENOXAPARIN INJ 40 MG/0.4 ML SYR SQ SCH (10:42)
[2018-01-30] MEDS: POLYETHYLENE (MIRALAX) 17 GM PACK PO SCH (10:43)
--- NOTE | 2018-01-30 17:28 | Hospitalist Progress Note ---
Date of Service January 30, 2018 Assessment & Plan (1) Lewy body dementia with behavioral disturbance: Advanced dementia no behavioral issues or agitation for past few day did not require any PRN dose of Haldol No change in status pt is waiting for placement in intermediate Being evaluated by Nicky laguna for placement and grandson updated (2) Pneumonia: Poss 2/2 aspiration. Cont Augmentin to complete the 7-day course aspiration precaution Appreciate speech eval diet changed to Pureed complete assistance in all the meals Per nursing, patient able to finish all his meals, no evidence of cough or aspiration noted (3) Hypertension: Controlled, (4) Muscle spasm: Chronic left-sided neck muscle spasm/torticollis Does not appear to be comfortable Ordered for Tylenol as needed Avoid sedative narcotics: Will cause worsening of mentation Grandson: Was wondering about possible Botox therapy Updated family: Given advanced disease, dementia, Botox therapy may not be appropriate Moreover at present patient appears to be pretty comfortable not in pain Best to avoid pain medication or intervention as much as possible Family in agreement (5) DVT prophylaxis: Lovenox DNR Dispo waiting for placement -to SNF vs dementia unit Subjective More awake today, having dinner Family visiting, and grandson at bedside Physical Exam 2 Vital Signs (Past 24 Hours): Last Vital Signs Temp 36.3 C L 01/30/18 15:00 Pulse 66 01/30/18 15:00 Resp 18 01/30/18 15:00 BP 153/80 H 01/30/18 15:00 Pulse Ox 92 01/30/18 15:00 Constitutional: + ill appearing and + altered mental status (lethergic , does not communicate ); no acute distress Eyes: + anicteric sclerae Respiratory: normal respiratory effort; no respiratory distress Cardiovascular: Rate/Rhythm: regular rate and regular rhythm Gastrointestinal (Abdomen): Inspection/Auscultation: abdomen normal to inspection Percussion/Palpation: abdomen soft Skin: + lesion (skin tear noted on rt hand , bandaged ) Neurologic: awake and + confused (unable to follow command ) Speech / Cognition: + abnormal cognition (Dementia )
[2018-01-31] MEDS: ENOXAPARIN INJ 40 MG/0.4 ML SYR SQ SCH (10:17)
[2018-01-31] MEDS: POLYETHYLENE (MIRALAX) 17 GM PACK PO SCH (10:17)
--- NOTE | 2018-01-31 17:25 | Hospitalist Progress Note ---
Date of Service January 31, 2018 Assessment & Plan (1) Lewy body dementia with behavioral disturbance: Advanced dementia no behavioral issues or agitation for past few day did not require any PRN dose of Haldol No change in status pt is waiting for placement in skilled nursing Being evaluated by Nicky laguna for placement and grandson updated (2) Pneumonia: Poss 2/2 aspiration. Cont Augmentin to complete the 7-day course aspiration precaution Appreciate speech eval diet changed to Pureed complete assistance in all the meals Per nursing, patient able to finish all his meals, no evidence of cough or aspiration noted (3) Hypertension: Controlled, (4) Muscle spasm: Chronic left-sided neck muscle spasm/torticollis Does not appear to be comfortable Ordered for Tylenol as needed Avoid sedative narcotics: Will cause worsening of mentation Grandson: Was wondering about possible Botox therapy Updated family: Given advanced disease, dementia, Botox therapy may not be appropriate Moreover at present patient appears to be pretty comfortable not in pain Best to avoid pain medication or intervention as much as possible Family in agreement (5) DVT prophylaxis: Lovenox DNR Dispo waiting for placement -to SNF vs dementia unit Subjective status remains unchanged opened eyes with voice moved rt arm slowly to reach things in air unable to communicate to answer questions no sign of distress noted Physical Exam 2 Vital Signs (Past 24 Hours): Last Vital Signs Temp 36.5 C 01/31/18 15:30 Pulse 62 01/31/18 15:30 Resp 20 01/31/18 15:30 BP 143/70 H 01/31/18 15:30 Pulse Ox 94 01/31/18 15:30 Constitutional: + ill appearing and + altered mental status (lethergic , does not communicate ); no acute distress Eyes: + anicteric sclerae Respiratory: normal respiratory effort; no respiratory distress Cardiovascular: Rate/Rhythm: regular rate and regular rhythm Gastrointestinal (Abdomen): Inspection/Auscultation: abdomen normal to inspection Percussion/Palpation: abdomen soft Skin: + lesion (skin tear noted on rt hand , bandaged ) Neurologic: awake and + confused (unable to follow command ) Speech / Cognition: + abnormal cognition (Dementia )
[2018-02-01] MEDS: ENOXAPARIN INJ 40 MG/0.4 ML SYR SQ SCH (08:41)
[2018-02-01] MEDS: POLYETHYLENE (MIRALAX) 17 GM PACK PO SCH (08:41)
--- NOTE | 2018-02-01 16:23 | Hospitalist Progress Note ---
Date of Service February 01, 2018 Assessment & Plan (1) Lewy body dementia with behavioral disturbance: Advanced dementia no behavioral issues or agitation for all last week did not require any PRN dose of Haldol past few days last dose of Haldol was 01/29 clinically remains stable pt is waiting for placement in snf Being evaluated by [facility] for placement (2) Pneumonia: Poss 2/2 aspiration. completed Augmentin 7-day course aspiration precaution Appreciate speech eval diet changed to Pureed complete assistance in all the meals Per nursing, patient able to finish all his meals, no evidence of cough or aspiration noted (3) Hypertension: Controlled, (4) Muscle spasm: Chronic left-sided neck muscle spasm/torticollis Does not appear to be comfortable Ordered for Tylenol as needed Avoid sedative narcotics: Will cause worsening of mentation Grandson: Was wondering about possible Botox therapy Updated family: Given advanced disease, dementia, Botox therapy may not be appropriate Moreover at present patient appears to be pretty comfortable not in pain Best to avoid pain medication or intervention as much as possible Family in agreement (5) DVT prophylaxis: Lovenox DNR Dispo waiting for placement -to SNF vs dementia unit Subjective awake , eyes are open , confused baseline advanced demenita unable to communicate no behavioral issues or agitation noted Physical Exam 2 Vital Signs (Past 24 Hours): Last Vital Signs Temp 35.9 C L 02/01/18 14:54 Pulse 68 02/01/18 14:54 Resp 16 02/01/18 14:54 BP 148/69 H 02/01/18 14:54 Pulse Ox 95 02/01/18 14:54 Constitutional: + ill appearing and + altered mental status (lethergic , does not communicate ); no acute distress Eyes: + anicteric sclerae Respiratory: normal respiratory effort; no respiratory distress Cardiovascular: Rate/Rhythm: regular rate and regular rhythm Gastrointestinal (Abdomen): Inspection/Auscultation: abdomen normal to inspection Percussion/Palpation: abdomen soft Skin: + lesion (skin tear noted on rt hand , bandaged ) Neurologic: awake and + confused (unable to follow command ) Speech / Cognition: + abnormal cognition (Dementia )
[2018-02-02] MEDS: ENOXAPARIN INJ 40 MG/0.4 ML SYR SQ SCH (08:30)
[2018-02-02] MEDS: POLYETHYLENE (MIRALAX) 17 GM PACK PO SCH (08:30)
--- NOTE | 2018-02-02 17:36 | Hospitalist Progress Note ---
Date of Service February 02, 2018 Assessment & Plan (1) Lewy body dementia with behavioral disturbance: Advanced dementia no behavioral issues or agitation for all last week did not require any PRN dose of Haldol past few days last dose of Haldol was 01/29 clinically remains stable pt is waiting for placement in long term Being evaluated by [facility] for placement (2) Pneumonia: Poss 2/2 aspiration. completed Augmentin 7-day course aspiration precaution Appreciate speech eval diet changed to Pureed complete assistance in all the meals Per nursing, patient able to finish all his meals, no evidence of cough or aspiration noted (3) Hypertension: Controlled, (4) Muscle spasm: Chronic left-sided neck muscle spasm/torticollis Does not appear to be comfortable Ordered for Tylenol as needed Avoid sedative narcotics: Will cause worsening of mentation Grandson: Was wondering about possible Botox therapy Updated family: Given advanced disease, dementia, Botox therapy may not be appropriate Moreover at present patient appears to be pretty comfortable not in pain Best to avoid pain medication or intervention as much as possible Family in agreement (5) DVT prophylaxis: Lovenox DNR Dispo waiting for placement -to SNF vs dementia unit Subjective No evidence of agitation, combative Opens eyes to voice No sign of distress Patient is unable to communicate due to advanced dementia Physical Exam 2 Vital Signs (Past 24 Hours): Last Vital Signs Temp 36.3 C L 02/02/18 14:55 Pulse 67 02/02/18 14:55 Resp 16 02/02/18 14:55 BP 153/79 H 02/02/18 14:55 Pulse Ox 94 02/02/18 14:55 Constitutional: + ill appearing and + altered mental status (lethergic , does not communicate ); no acute distress Eyes: + anicteric sclerae Respiratory: normal respiratory effort; no respiratory distress Cardiovascular: Rate/Rhythm: regular rate and regular rhythm Gastrointestinal (Abdomen): Inspection/Auscultation: abdomen normal to inspection Percussion/Palpation: abdomen soft Skin: + lesion (skin tear noted on rt hand , bandaged ) Neurologic: awake, + confused (unable to follow command ) and + obtunded Speech / Cognition: + abnormal cognition (Dementia )
[2018-02-03] MEDS: POLYETHYLENE (MIRALAX) 17 GM PACK PO SCH (09:19)
[2018-02-03] MEDS: ENOXAPARIN INJ 40 MG/0.4 ML SYR SQ SCH (09:20)
--- NOTE | 2018-02-03 14:43 | Hospitalist Progress Note ---
Date of Service February 03, 2018 Assessment & Plan (1) Lewy body dementia with behavioral disturbance: Advanced dementia no behavioral issues or agitation for all last week did not require any PRN dose of Haldol past few days last dose of Haldol was 01/29 clinically remains stable pt is waiting for placement in group home Being evaluated by [facility] for placement (2) Pneumonia: Poss 2/2 aspiration. completed Augmentin 7-day course aspiration precaution Appreciate speech eval diet changed to Pureed complete assistance in all the meals Per nursing, patient able to finish all his meals, no evidence of cough or aspiration noted (3) Hypertension: Controlled, (4) Muscle spasm: Chronic left-sided neck muscle spasm/torticollis Does not appear to be comfortable Ordered for Tylenol as needed Avoid sedative narcotics: Will cause worsening of mentation Grandson: Was wondering about possible Botox therapy Updated family: Given advanced disease, dementia, Botox therapy may not be appropriate Moreover at present patient appears to be pretty comfortable not in pain Best to avoid pain medication or intervention as much as possible Family in agreement (5) DVT prophylaxis: Lovenox DNR accepted in [facility] possible transfer tomorrow 02/04/18 Subjective status remains unchanged advanced dementia , unable to communicate no agitation or behavioral issues noted in last 6 days accepted at [facility] transfer tomorrow Physical Exam 2 Vital Signs (Past 24 Hours): Last Vital Signs Temp 36.3 C L 02/03/18 07:16 Pulse 80 02/03/18 07:16 Resp 16 02/03/18 07:16 BP 143/86 H 02/03/18 07:16 Pulse Ox 95 02/03/18 07:16 Constitutional: + ill appearing and + altered mental status (lethergic , does not communicate ); no acute distress Eyes: + anicteric sclerae Respiratory: normal respiratory effort; no respiratory distress Cardiovascular: Rate/Rhythm: regular rate and regular rhythm Gastrointestinal (Abdomen): Inspection/Auscultation: abdomen normal to inspection Percussion/Palpation: abdomen soft Skin: + lesion (skin tear noted on rt hand , bandaged ) Neurologic: awake, + confused (unable to follow command ) and + obtunded Speech / Cognition: + abnormal cognition (Dementia )
[2018-02-04] MEDS: POLYETHYLENE (MIRALAX) 17 GM PACK PO SCH (08:33)
[2018-02-04] MEDS: ENOXAPARIN INJ 40 MG/0.4 ML SYR SQ SCH (08:33)
--- NOTE | 2018-02-04 11:34 | Hospitalist Progress Note ---
Date of Service February 04, 2018 Assessment & Plan (1) Lewy body dementia with behavioral disturbance: Advanced dementia wo behavioral issues or agitation for > 1 week. clinically remains stable pt is waiting for placement in alf (2) Pneumonia: Poss 2/2 aspiration. completed Augmentin 7-day course aspiration precaution diet changed to Pureed per Speech Path recs. Repeat CXR as outpatient to ensure resolution of pneumonia. (3) Hypertension: Controlled, off antihypertensives, which were stopped after frequent falling at home. (4) Muscle spasm: Chronic left-sided neck muscle spasm/torticollis, currently comfortable. Cont Tylenol PRN. Possible Botox as outpatient. (5) Constipation: Stopped Fleet's enema as this will not likely be tolerated. Continues on daily Miralax without BM. Added BID Colase and daily Bisacodyl suppositories until BM. Ambulate with assist. (6) DVT prophylaxis: Lovenox DNR Dispo-medically stable for DC to a personal [facility]. Awaiting referral to process. Naomi Joel DO [facility] Hospitalist. Subjective 87-year-old man with progressive Lewy body dementia awaiting home term care facility. Review of systems is unobtainable dementia. Per nursing staff patient has not had a bowel movement in several days despite compliance with daily MiraLAX. The patient is reportedly eating. He consistently takes his clothes off so he is when they are placed on him, however, there has been no episode of aggression requiring a restraint of any kind. Physical Exam 2 Vital Signs (Past 24 Hours): Last Vital Signs Temp 36.2 C L 02/04/18 07:03 Pulse 60 02/04/18 07:03 Resp 18 02/04/18 07:03 BP 152/75 H 02/04/18 07:03 Pulse Ox 94 02/04/18 07:03 CONSTITUTIONAL: WNWD, vitals as above, NAD, eyes are closed and patient not responding to me but is making sounds as if he is comfortably asleep. EYES: PERRL, normal conjuctivae, no scleral icterus ENT: MMM NECK: trachea midline RESPIRATORY: clear to auscultation bilaterally, no crackles, rales or wheezes, normal respiratory effort CARDIOVASCULAR: regular rate and rhythm, S1 and 2 heard without murmurs, gallops or rubs, no peripheral edema, CHEST: inspection of chest was normal (+pacemaker, +port) GASTROINTESTINAL: normal bowel sounds, soft, no withdrawal to palpation, nondistended. MUSCULOSKELETAL: unable to obtain 2/2 mental status SKIN: warm and dry, small skin tear on R forearm-covered w bandage that is c/d/ i NEUROLOGIC: Unable to obtain 2/2 dementia. PSYCHIATRIC: Eyes closed, lying supine in bed, moves spontaneously and makes verbal noises but does not open his eyes and converse with me today. No good eye contact.
[2018-02-04] MEDS: DOCUSATE SODIUM 100 MG CAP PO SCH ×2 (12:11→21:31)
[2018-02-04] MEDS: BISACODYL 10 MG SUPP PR SCH (13:45)
[2018-02-05] MEDS: BISACODYL 10 MG SUPP PR SCH (07:33)
[2018-02-05] MEDS: POLYETHYLENE (MIRALAX) 17 GM PACK PO SCH (07:34)
[2018-02-05] MEDS: ENOXAPARIN INJ 40 MG/0.4 ML SYR SQ SCH (07:34)
[2018-02-05] MEDS: DOCUSATE SODIUM 100 MG CAP PO SCH ×2 (07:34→21:42)
--- NOTE | 2018-02-05 13:03 | Hospitalist Progress Note ---
Date of Service February 05, 2018 Assessment & Plan (1) Lewy body dementia with behavioral disturbance: Advanced dementia wo behavioral issues or agitation for > 1 week. clinically remains stable pt is waiting for placement in skilled nursing (2) Pneumonia: Poss 2/2 aspiration. completed Augmentin 7-day course aspiration precaution diet changed to Pureed per Speech Path recs. Repeat CXR as outpatient to ensure resolution of pneumonia. (3) Hypertension: Controlled, off antihypertensives, which were stopped after frequent falling at home. (4) Muscle spasm: Chronic left-sided neck muscle spasm/torticollis, currently comfortable. Cont Tylenol PRN. Possible Botox as outpatient. (5) Constipation: Continues on daily Miralax with small BM. Added BID Colace and daily Bisacodyl suppositories until BM. Ambulate with assist TID (6) DVT prophylaxis: Lovenox DNR Dispo-medically stable for DC to a personal fdc. Awaiting referral to process. Spoke [facility] nursing staff about ambulating him purposefully. Naomi Joel DO [facility] Hospitalist. Subjective 87 yo M with advanced Lewy Body dementia here for placement. ROS is unobtainable 2/2 dementia. Per nurses, no BM and he has been tryin gto crawl out of bed today. This was encouraged to nurses if he is cooperative to get his blood flowing. Ambulate with assist TID. Small BM yesterday. Physical Exam 2 Vital Signs (Past 24 Hours): Last Vital Signs Temp 36.8 C 02/05/18 07:47 Pulse 58 L 02/05/18 07:47 Resp 16 02/05/18 07:47 BP 133/79 02/05/18 07:47 Pulse Ox 95 02/05/18 07:47 CONSTITUTIONAL: WNWD, vitals as above, NAD EYES: PERRL, normal conjuctivae, no scleral icterus ENT: MMM NECK: trachea midline RESPIRATORY: clear to auscultation bilaterally, no crackles, rales or wheezes, normal respiratory effort CARDIOVASCULAR: regular rate and rhythm, S1 and 2 heard without murmurs, gallops or rubs, no peripheral edema, CHEST: inspection of chest was normal (+pacemaker, +port) GASTROINTESTINAL: normal bowel sounds, soft, no withdrawal to palpation, nondistended. MUSCULOSKELETAL: unable to obtain 2/2 mental status SKIN: warm and dry, small skin tear on R forearm-covered w bandage that is c/d/ i NEUROLOGIC: Unable to obtain 2/2 dementia. PSYCHIATRIC: Eyes closed mostly but opens them on occasion in response to me asking hiim questions. He was able to follow my instruction to take a deep breath on one side. He did not verbalize anything to me but did open his eyes when I was speaking with him. Results & Data Medications Administered Current Inpatient Medications Acetaminophen (Tylenol) 500 mg PO Q8H PRN PRN Reason: pain /fever Stop: 02/22/18 20:59 Bisacodyl (Dulcolax) 10 mg ND DAILY [facility] Stop: 03/06/18 11:44 Last Admin: 02/05/18 07:33 Dose: Not Given Docusate Sodium (Colace) 100 mg PO BID [facility] Stop: 03/06/18 11:44 Last Admin: 02/05/18 21:42 Dose: 100 mg Enoxaparin Sodium (Lovenox) 40 mg SQ QAM [facility] Stop: 02/23/18 08:59 Last Admin: 02/05/18 07:34 Dose: 40 mg Haloperidol Lactate (Haldol) 5 mg IM Q8H PRN PRN Reason: Agitation Stop: 02/28/18 19:08 Last Admin: 02/05/18 22:03 Dose: 5 mg Polyethylene Glycol (Miralax Powder Packet) 17 gm PO DAILY [facility] Stop: 02/27/18 11:29 Last Admin: 02/05/18 07:34 Dose: 17 gm
[2018-02-05] MEDS: HALOPERIDOL LACTATE 5 MG/ML 1 ML VIAL IM PRN (22:03)
[2018-02-06] MEDS: BISACODYL 10 MG SUPP PR SCH (12:39)
[2018-02-06] MEDS: DOCUSATE SODIUM 100 MG CAP PO SCH ×2 (12:39→22:26)
[2018-02-06] MEDS: ENOXAPARIN INJ 40 MG/0.4 ML SYR SQ SCH (12:39)
[2018-02-06] MEDS: POLYETHYLENE (MIRALAX) 17 GM PACK PO SCH (12:40)
--- NOTE | 2018-02-06 17:47 | Hospitalist Progress Note ---
Date of Service February 06, 2018 Assessment & Plan (1) Lewy body dementia with behavioral disturbance: Advanced dementia wo behavioral issues or agitation for many days. clinically remains stable pt is waiting for placement in skilled nursing Of note patient has been hypersomnolent for the past 3 weeks consistently. He is able to wake up and eat food and is able to intermittently verbalize some words, mostly echolalia based on what he hears. He may be suffering from a hypoactive delirium. Appreciate nursing assistance to help regulate day night cycles and continue to attempt to ambulate regularly. Appreciate case management assistance in facilitating placement into a custodial. (2) Pneumonia: completed Augmentin 7-day course aspiration precaution diet changed to Pureed per Speech Path recs. Repeat CXR as outpatient to ensure resolution of pneumonia. (3) Hypertension: Controlled, off antihypertensives, which were stopped after frequent falling at home. (4) Muscle spasm: Chronic left-sided neck muscle spasm/torticollis, currently comfortable. Cont Tylenol PRN. Possible Botox as outpatient. (5) Constipation: Continues on daily Miralax. Added BID Colace and daily Bisacodyl suppositories until BM. Ambulate with assist every shift (6) DVT prophylaxis: Lovenox DNR Dispo-medically stable for DC to a personal group home. Awaiting referrals to process. Naomi Joel DO [facility] Hospitalist. Subjective 87-year-old man with progressed Lewy body dementia hospitalized for placement. Review of systems is unobtainable secondary to dementia Physical Exam 2 Vital Signs (Past 24 Hours): Last Vital Signs Temp 36.5 C 02/06/18 15:19 Pulse 57 L 02/06/18 15:19 Resp 20 02/06/18 15:19 BP 135/82 02/06/18 15:19 Pulse Ox 97 02/06/18 15:19 CONSTITUTIONAL: WNWD, vitals as above, NAD, eyes are closed and patient not responding to me, appears to be sleeping comfortably EYES: PERRL, normal conjuctivae, no scleral icterus ENT: MMM NECK: trachea midline RESPIRATORY: clear to auscultation bilaterally, no crackles, rales or wheezes, normal respiratory effort, limited exam 2/2 mental status (cannot follow commands and difficult to reposition) CARDIOVASCULAR: regular rate and rhythm, S1 and 2 heard without murmurs, gallops or rubs, no peripheral edema GASTROINTESTINAL: normal bowel sounds, soft, no withdrawal to palpation, nondistended. MUSCULOSKELETAL: unable to obtain 2/2 mental status SKIN: warm and dry, small skin tear on R forearm-covered w bandage that is c/d/ i NEUROLOGIC: Unable to obtain 2/2 dementia. PSYCHIATRIC: Eyes closed, lying supine in bed, nonverbal, sleeping Results & Data Medications Administered Current Inpatient Medications Acetaminophen (Tylenol) 500 mg PO Q8H PRN PRN Reason: pain /fever Stop: 02/22/18 20:59 Bisacodyl (Dulcolax) 10 mg AL DAILY [facility] Stop: 03/06/18 11:44 Last Admin: 02/06/18 12:39 Dose: Not Given Docusate Sodium (Colace) 100 mg PO BID [facility] Stop: 03/06/18 11:44 Last Admin: 02/06/18 12:39 Dose: Not Given Enoxaparin Sodium (Lovenox) 40 mg SQ QAM [facility] Stop: 02/23/18 08:59 Last Admin: 02/06/18 12:39 Dose: Not Given Haloperidol Lactate (Haldol) 5 mg IM Q8H PRN PRN Reason: Agitation Stop: 02/28/18 19:08 Last Admin: 02/05/18 22:03 Dose: 5 mg Polyethylene Glycol (Miralax Powder Packet) 17 gm PO DAILY [facility] Stop: 02/27/18 11:29 Last Admin: 02/06/18 12:40 Dose: Not Given
[2018-02-07 07:39] LABS: Hemoglobin 15.1 g/dL (14.0-18.0); Mean Corpuscular Hgb Conc 34.3 g/dL (32-36); Mean Corpuscular Volume 92.8 fL (80-100); Mean Platelet Volume 11.3 fL (7.4-10.4); Platelet Count 251 K/uL (130-400); RDW Coefficient of Variation 12.8 % (11.5-14.5); RDW Standard Deviation 43.5 fL (36.4-46.3); Red Blood Count 4.74 M/uL (4.7-6.1); White Blood Count 7.08 K/uL (4.8-10.8)
[2018-02-07 08:10] LABS: BUN Creatinine Ratio 27.9 (10-20); Calcium 9.8 mg/dl (8.5-10.1); Creatinine Clr Calc Pharmacy 40.7 ml/min; Est GFR (African American) 54.1; Est GFR (Non-African American) 46.7; Potassium 4.1 mmol/L (3.5-5.1)
[2018-02-07] MEDS: DOCUSATE SODIUM 100 MG CAP PO SCH ×2 (09:25→20:36)
[2018-02-07] MEDS: BISACODYL 10 MG SUPP PR SCH (09:25)
[2018-02-07] MEDS: ENOXAPARIN INJ 40 MG/0.4 ML SYR SQ SCH (09:25)
[2018-02-07] MEDS: POLYETHYLENE (MIRALAX) 17 GM PACK PO SCH (09:25)
--- NOTE | 2018-02-07 12:05 | Hospitalist Progress Note ---
Date of Service February 07, 2018 Assessment & Plan (1) Lewy body dementia with behavioral disturbance: Advanced dementia wo behavioral issues or agitation for many days. Haldol given two nights ago for increasing agitation, but he has been stable since that time. Still remains hypersomnolent but awakens for meals and was repeating my words tonight with eyes open. Of note patient has changed rooms over the past 2 days 3 times. An order was placed so that he does not change rooms any longer, hopefully this will eliminate risk for agitation moving forward. Haldol was discontinued. (2) Pneumonia: completed Augmentin 7-day course aspiration precaution diet changed to Pureed per Speech Path recs. Repeat CXR as outpatient to ensure resolution of pneumonia. (3) Hypertension: Controlled, off antihypertensives, which were stopped after frequent falling at home. (4) Muscle spasm: Chronic left-sided neck muscle spasm/torticollis, currently comfortable. Cont Tylenol PRN. Possible Botox as outpatient. (5) Constipation: Continues on daily Miralax, Colace. +BM per nurse. Stop suppositories. Ambulate with assist every shift as tolerated. (6) DVT prophylaxis: Lovenox DNR Dispo-medically stable for DC to a personal residential. Awaiting referrals to process. Naomi Joel DO [facility] Hospitalist. Subjective 87-year-old man with progressed Lewy body dementia hospitalized for placement. Review of systems is unobtainable secondary to dementia Physical Exam 2 Vital Signs (Past 24 Hours): Last Vital Signs Temp 36.6 C 02/07/18 07:00 Pulse 61 02/07/18 07:00 Resp 20 02/07/18 07:00 BP 148/74 H 02/07/18 07:00 Pulse Ox 95 02/07/18 07:00 CONSTITUTIONAL: WNWD, vitals as above, NAD, appears comfortable EYES: PERRL, normal conjuctivae, no scleral icterus ENT: MMM NECK: trachea midline RESPIRATORY: clear to auscultation bilaterally, no crackles, rales or wheezes, normal respiratory effort, limited exam 2/2 mental status (cannot follow commands and difficult to reposition) CARDIOVASCULAR: regular rate and rhythm, S1 and 2 heard without murmurs, gallops or rubs, no peripheral edema GASTROINTESTINAL: soft, no withdrawal to palpation, nondistended. MUSCULOSKELETAL: unable to obtain 2/2 mental status SKIN: warm and dry, small skin tear on R forearm-covered w bandage that is c/d/ i NEUROLOGIC: Unable to obtain 2/2 dementia. Results & Data Laboratory Results Short CBC 02/07/18 Range/Units 07:16 WBC 7.08 (4.8-10.8) K/uL Hgb 15.1 (14.0-18.0) g/dL Hct 44.0 (42-52) % Plt Count 251 (130-400) K/uL [facility] 02/07/18 07:16 Sodium 140 Potassium 4.1 Chloride 106 Carbon Dioxide 29 BUN 38 H Creatinine 1.37 Glucose 84 Calcium 9.8 Medications Administered Short CBC 02/07/18 Range/Units 07:16 WBC 7.08 (4.8-10.8) K/uL Hgb 15.1 (14.0-18.0) g/dL Hct 44.0 (42-52) % Plt Count 251 (130-400) K/uL [facility] 02/07/18 07:16 Sodium 140 Potassium 4.1 Chloride 106 Carbon Dioxide 29 BUN 38 H Creatinine 1.37 Glucose 84 Calcium 9.8
[2018-02-08] MEDS: POLYETHYLENE (MIRALAX) 17 GM PACK PO SCH (09:17)
[2018-02-08] MEDS: DOCUSATE SODIUM 100 MG CAP PO SCH ×2 (09:17→20:07)
[2018-02-08] MEDS: ENOXAPARIN INJ 40 MG/0.4 ML SYR SQ SCH (09:17)
--- NOTE | 2018-02-08 18:05 | Hospitalist Progress Note ---
Date of Service February 08, 2018 Assessment & Plan (1) Lewy body dementia with behavioral disturbance: Advanced dementia wo behavioral issues or agitation for many days. Haldol given 3 nights ago for increasing agitation, but he has been stable since that time. Still remains hypersomnolent but awakens for meals and was repeating my words tonight with eyes open. Trying to get out of bed today but was easily reoriented. Of note patient has changed rooms over the past 2 days 3 times. An order was placed so that he does not change rooms any longer, hopefully this will eliminate risk for agitation moving forward. Haldol was discontinued. (2) Pneumonia: completed Augmentin 7-day course aspiration precaution diet changed to Pureed per Speech Path recs. Repeat CXR as outpatient to ensure resolution of pneumonia. (3) Hypertension: Controlled, off antihypertensives, which were stopped after frequent falling at home. (4) Muscle spasm: Chronic left-sided neck muscle spasm/torticollis, currently comfortable. Cont Tylenol PRN. Possible Botox as outpatient. (5) Constipation: Continues on daily Miralax, Colace. +BM per nurse. Ambulate with assist every shift as tolerated. (6) DVT prophylaxis: Lovenox DNR Dispo-medically stable for DC to a personal assisted. Awaiting referrals to process. Naomi Joel DO [facility] Hospitalist. Subjective 87-year-old man with progressed Lewy body dementia hospitalized for placement. Review of systems is unobtainable secondary to dementia Physical Exam 2 Vital Signs (Past 24 Hours): Last Vital Signs Temp 36.7 C 02/08/18 15:17 Pulse 79 02/08/18 15:17 Resp 20 02/08/18 15:17 BP 176/78 H 02/08/18 15:17 Pulse Ox 94 02/08/18 15:17 CONSTITUTIONAL: WNWD, vitals as above, NAD, appears comfortable EYES: pupils are equal bilaterally, normal conjuctivae, no scleral icterus ENT: MMM NECK: trachea midline RESPIRATORY: clear to auscultation bilaterally, no crackles, rales or wheezes, normal respiratory effort, limited exam 2/2 mental status (cannot follow commands) CARDIOVASCULAR: regular rate and rhythm, S1 and 2 heard without murmurs, gallops or rubs, no peripheral edema GASTROINTESTINAL: soft, no withdrawal to palpation, nondistended. MUSCULOSKELETAL: unable to obtain 2/2 mental status SKIN: warm and dry, small skin tear on R forearm-covered w bandage that is c/d/ i NEUROLOGIC: Unable to obtain 2/2 dementia. Results & Data Medications Administered Current Inpatient Medications Acetaminophen (Tylenol) 500 mg PO Q8H PRN PRN Reason: pain /fever Stop: 02/22/18 20:59 Docusate Sodium (Colace) 100 mg PO BID [facility] Stop: 03/06/18 11:44 Last Admin: 02/08/18 09:17 Dose: 100 mg Enoxaparin Sodium (Lovenox) 40 mg SQ QAM [facility] Stop: 02/23/18 08:59 Last Admin: 02/08/18 09:17 Dose: 40 mg Polyethylene Glycol (Miralax Powder Packet) 17 gm PO DAILY [facility] Stop: 02/27/18 11:29 Last Admin: 02/08/18 09:17 Dose: 17 gm
[2018-02-09] MEDS: POLYETHYLENE (MIRALAX) 17 GM PACK PO SCH (08:30)
[2018-02-09] MEDS: DOCUSATE SODIUM 100 MG CAP PO SCH ×2 (08:30→20:36)
[2018-02-09] MEDS: ENOXAPARIN INJ 40 MG/0.4 ML SYR SQ SCH (08:31)
--- NOTE | 2018-02-09 16:27 | Hospitalist Progress Note ---
Date of Service February 09, 2018 Assessment & Plan (1) Lewy body dementia with behavioral disturbance: Advanced dementia wo behavioral issues or agitation for many days. Of note patient has changed rooms over the past 2 days 3 times. An order was placed so that he does not change rooms any longer, hopefully this will eliminate risk for agitation moving forward. (2) Pneumonia: completed Augmentin 7-day course aspiration precaution diet changed to Pureed per Speech Path recs. Repeat CXR as outpatient to ensure resolution of pneumonia. (3) Hypertension: Slightly elevated but this fluctuates and may be related to varying levels of alertness. cont off antihypertensives, which were stopped after frequent falling at home. (4) Muscle spasm: Chronic left-sided neck muscle spasm/torticollis, currently comfortable. Cont Tylenol PRN. Possible Botox as outpatient. (5) Constipation: +BM per nurse. Ambulate with assist every shift as tolerated. (6) DVT prophylaxis: Lovenox DNR Dispo-medically stable for DC to a personal senior care. Awaiting referrals to process. Naomi Joel DO [facility] Hospitalist. Subjective 87-year-old man with progressed Lewy body dementia hospitalized for placement. Review of systems is unobtainable secondary to dementia. Continues to wak up and eat his meals with ease. Physical Exam 2 Vital Signs (Past 24 Hours): Last Vital Signs Temp 36.5 C 02/09/18 15:13 Pulse 69 02/09/18 15:13 Resp 20 02/09/18 15:13 BP 157/75 H 02/09/18 15:13 Pulse Ox 94 02/09/18 15:13 CONSTITUTIONAL: WNWD, vitals as above, NAD, appears comfortable EYES: pupils are equal bilaterally, normal conjuctivae, no scleral icterus RESPIRATORY: clear to auscultation bilaterally, no crackles, rales or wheezes, normal respiratory effort, limited exam 2/2 mental status (cannot follow commands) CARDIOVASCULAR: regular rate and rhythm, S1 and 2 heard without murmurs, gallops or rubs, no peripheral edema GASTROINTESTINAL: soft, no withdrawal to palpation, nondistended. MUSCULOSKELETAL: unable to obtain 2/2 mental status, but moves all extremities equally SKIN: warm and dry, small skin tear on R forearm-covered w bandage that is c/d/ i NEUROLOGIC: Unable to obtain 2/2 dementia. Results & Data Medications Administered Current Inpatient Medications Acetaminophen (Tylenol) 500 mg PO Q8H PRN PRN Reason: pain /fever Stop: 02/22/18 20:59 Docusate Sodium (Colace) 100 mg PO BID [facility] Stop: 03/06/18 11:44 Last Admin: 02/09/18 08:30 Dose: 100 mg Enoxaparin Sodium (Lovenox) 40 mg SQ QAM [facility] Stop: 02/23/18 08:59 Last Admin: 02/09/18 08:31 Dose: 40 mg Polyethylene Glycol (Miralax Powder Packet) 17 gm PO DAILY [facility] Stop: 02/27/18 11:29 Last Admin: 02/09/18 08:30 Dose: 17 gm
[2018-02-10] MEDS: ENOXAPARIN INJ 40 MG/0.4 ML SYR SQ SCH (07:58)
[2018-02-10] MEDS: POLYETHYLENE (MIRALAX) 17 GM PACK PO SCH (07:58)
[2018-02-10] MEDS: DOCUSATE SODIUM 100 MG CAP PO SCH ×2 (08:00→20:48)
--- NOTE | 2018-02-10 17:54 | Hospitalist Progress Note ---
Date of Service February 10, 2018 Assessment & Plan (1) Lewy body dementia with behavioral disturbance: Advanced dementia wo behavioral issues or agitation for many days. Today the patient is running around naked, persistently taking close off. He appears somewhat agitated so physical exam was not performed today, and did not engage the patient much. Of note patient has changed rooms over the past 2 days 3 times. An order was placed so that he does not change rooms any longer, hopefully this will eliminate risk for agitation moving forward. (2) Pneumonia: completed Augmentin 7-day course aspiration precaution diet changed to Pureed per Speech Path recs. Repeat CXR as outpatient to ensure resolution of pneumonia. (3) Hypertension: Controlled, cont off antihypertensives, which were stopped after frequent falling at home. (4) Muscle spasm: Chronic left-sided neck muscle spasm/torticollis, currently comfortable. Cont Tylenol PRN. Possible Botox as outpatient. (5) Constipation: Stool softeners daily. (6) DVT prophylaxis: Lovenox DNR Dispo-medically stable for DC to a personal snf. Awaiting referrals to process. Naomi Joel DO [facility] Hospitalist. Subjective 87-year-old man presents with progressive Lewy body dementia, and unable to be properly cared for at home. He is currently waiting placement. All day he has been naked and continuing to take close off when the nurses put it back on. Otherwise tolerating p.o. Physical Exam 2 Vital Signs (Past 24 Hours): Last Vital Signs Temp 36.5 C 02/10/18 15:00 Pulse 73 02/10/18 15:00 Resp 18 02/10/18 15:00 BP 153/75 H 02/10/18 15:00 Pulse Ox 94 02/10/18 15:00 CONSTITUTIONAL: WNWD, vitals as above, NAD, appears agitated, naked EYES: pupils are equal bilaterally, normal conjuctivae, no scleral icterus RESPIRATORY: clear to auscultation bilaterally, no crackles, rales or wheezes, normal respiratory effort, limited exam 2/2 mental status (cannot follow commands) CARDIOVASCULAR: regular rate and rhythm, S1 and 2 heard without murmurs, gallops or rubs, no peripheral edema GASTROINTESTINAL: soft, no withdrawal to palpation, nondistended. MUSCULOSKELETAL: unable to obtain 2/2 mental status, but moves all extremities equally SKIN: warm and dry, small skin tear on R forearm-covered w bandage that is c/d/ i NEUROLOGIC: Unable to obtain 2/2 dementia. Results & Data Medications Administered Current Inpatient Medications Acetaminophen (Tylenol) 500 mg PO Q8H PRN PRN Reason: pain /fever Stop: 02/22/18 20:59 Docusate Sodium (Colace) 100 mg PO BID [facility] Stop: 03/06/18 11:44 Last Admin: 02/10/18 20:48 Dose: Not Given Enoxaparin Sodium (Lovenox) 40 mg SQ QAM [facility] Stop: 02/23/18 08:59 Last Admin: 02/10/18 07:58 Dose: 40 mg Polyethylene Glycol (Miralax Powder Packet) 17 gm PO DAILY [facility] Stop: 02/27/18 11:29 Last Admin: 02/10/18 07:58 Dose: 17 gm
[2018-02-11] MEDS: POLYETHYLENE (MIRALAX) 17 GM PACK PO SCH (08:30)
[2018-02-11] MEDS: DOCUSATE SODIUM 100 MG CAP PO SCH (08:30)
[2018-02-11] MEDS: ENOXAPARIN INJ 40 MG/0.4 ML SYR SQ SCH (09:08)
--- NOTE | 2018-02-12 14:52 | Discharge Summary ---
Date of Service February 12, 2018 Admission HPI Per Admitting Provider History obtained from patient family and records. Unable to obtain history from patient secondary to dementia. Medical history significant for hypertension (currently not on meds), dementia, prostate cancer status post radiation, GERD, chronic anemia (baseline hemoglobin 11-12). Last week patient noted to have worsening agitation and hallucinations as per records. Outpatient UA did not show infection. Family had started inquiring about placing patient at [facility]. Yesterday afternoon, increased agitation noted. No fever, no chills. Patient brought to the ER by family. Medical History as above Home lisinopril stopped a few months ago due to falls. 2 weeks ago, patient noted to have neck deviation to the left by physical therapy. Possible need for Botox injection as per PT as per family. 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 Admission Exam Per Admitting Provider GENERAL: Comfortable, demented, slightly restless, no respiratory distress SKIN: Pallor, warm HEENT: Pale palpebral conjunctivae, no ptosis, dry buccal mucosa NECK : Lateral deviation to the left, no tenderness CHEST : Decreased effort , no tenderness HEART : RRR, no obvious murmurs ABDOMEN: Soft, nontender EXTREMITIES : No LE swelling/tenderness, no other conspicuous deformities noted NEUROLOGIC : Demented , no facial asymmetry, slightly restless, gait and stance not assessed Principal Diagnosis Lewy Body Dementia Discharge Exam CONSTITUTIONAL: WNWD, vitals as above, NAD, appears agitated, naked EYES: pupils are equal bilaterally, normal conjuctivae, no scleral icterus RESPIRATORY: clear to auscultation bilaterally, no crackles, rales or wheezes, normal respiratory effort, limited exam 2/2 mental status (cannot follow commands) CARDIOVASCULAR: regular rate and rhythm, S1 and 2 heard without murmurs, gallops or rubs, no peripheral edema GASTROINTESTINAL: soft, no withdrawal to palpation, nondistended. MUSCULOSKELETAL: unable to obtain 2/2 mental status, but moves all extremities equally SKIN: warm and dry, small skin tear on R forearm-covered w bandage that is c/d/ i NEUROLOGIC: Unable to obtain 2/2 dementia. Discharge Data Allergies Allergy/AdvReac Type Severity Reaction Status Date / Time oxybutynin AdvReac Severe LETHARGIC Verified 01/21/18 00:22 quetiapine AdvReac Severe LETHARGIC Verified 01/21/18 00:22 Consultations 01/21/18 02:15 Consult Case Management - Discharge Planning Routine 01/22/18 15:24 Consult Neurology Routine Ordered Studies 01/20/18 22:25 CT head/brain wo con Stat 01/28/18 18:44 CT head/brain wo con Stat Hospital Course (1) Lewy body dementia with behavioral disturbance: (2) Pneumonia: (3) Hypertension: (4) Muscle spasm: (5) Constipation: 87 yo M with Lewy Body dementia that was progressed presented with family to the ER 2/2 confusion. He made some comments about wanting to go outside and killing himself. Per family he suffered periodic psychotic episodes, but the one that day seemed different and prolonged. On arrival to the ER he was hemodynamically stable and afebrile with a BP 182/92. He was oxygenating well on room air. Labwork was unremarkable for metabolic cause of confusion. CT brain revealed no hemorrhage, mass effect, or evidence of acute territorial ischemia by CT criteria. 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 There were no acute ischemic changes and no ectopy seen. A portable single view chest xray revealed low lung volumes with bibasilar scarring and atelectasis and a questionable nodular density projecting over the right midlung. He was admitted to the hospitalist service with plans for snf placement as his family could not care for him any longer. The following day a two view chest xray was performed, however, this was after an episode of agitation on the floor requiring Haldol administration. This revealed evidence of a left lung infiltrate and Unasyn was started for possible aspiration pneumonia. Speech path was consulted and recommended against further speech path therapy as the patient has no issues with swallowing. Neurology was consulted and ordered an EEG. This revealed a mildly diffusely abnormal EEG consistent with at most a mild nonfocal encephalopathy without epileptogenic features. The patient continued to remain somnolent but would awaken to eat. He had another agitation episode which was provoked by moving rooms multiple times. He otherwise awaited placement into a facility for the remainder of his stay. He completed a course of antibiotics for his presumed aspiration pneumonia. He was discharged in stable condition. Total Time Total Time Spent Total Time Spent (In Minutes): 60 Total Time Includes: Examination of the Patient, Discharge Planning, Medication Reconciliation and Communication With Other Providers Discharge Plan Discharge Items Patient Disposition: Transfer [facility] Reason For Visit: AGITATION Discharge Diagnosis: Lewy Body Dementia Condition: Good Discharge Goals: Improve function and Increase independence Activity: Resume your previous activity Non-emergency contact: Primary Care Provider Call non-emergency contact if: you have any medication questions, your symptoms worsen, your pain is not controlled and you have a fever Diet: Heart Healthy Addtl Provider Instructions: Please take all medications as instructed. Please note multiple medications have been discontinued. It is recommended to have a primary care follow-up within a week of discharge. It is recommended to have a chest x-ray in the next 4 weeks to ensure complete resolution of pneumonia. This can be ordered through your primary care office. Please follow-up with neurology as instructed. It was a pleasure taking care of you! Please call if you have any questions or problems. You can reach a [facility] hospitalist on duty at [facility] 24 hours a day by calling [phone]. Take care of yourself. Naomi Joel, [facility] Pres[facility]: Continue acetaminophen [Tylenol] 325 mg Capsule 650 mg PO Q4 PRN (Reason: Fever Or Pain) RF: 0 Discontinued cyanocobalamin (vitamin B-12) [Vitamin B-12] 1,000 mcg Tablet 1,000 mcg PO DAILY RF: 0 mometasone [Nasonex] 50 mcg/actuation [place],Non-Aerosol 2 spray INTRANASAL DAILY PRN (Reason: Congestion) RF: 0 ranitidine HCl 150 mg Capsule 150 mg PO DAILY RF: 0 sertraline 50 mg Tablet 25 mg PO DAILY RF: 0 multivitamin Tablet 1 tab PO DAILY RF: 0 vit C,X-Qa-memgb-lutein-zeaxan [PreserVision AREDS-2] 530-117-90-1 mg-unit-mg- mg Capsule 2 tab PO DAILY RF: 0 Discharge Orders: Discharge Order (Routine); Ordered 02/11/18 Ordered By: Naomi Joel Skilled Items Patient informed of condition?: Yes DNR: Yes Discharge Level of Care: Skilled Communicable Disease: No Discharge Prognosis: Stable Admission Data Admit Date/Time: 01/21/18 17:32 Attending Provider: Naomi Joel Admit Provider: Robin Barnes Primary Care Provider: Andrew Ty Other Providers: Mac Huffman ; Naomi Joel Service: Medical Other Interventions: Discharge Summary Assessment (RN) Last Done: 02/11/18 14:13 DC Date/Time DO NOT enter until pt leaves facility: 02/11/18 14:46
--- NOTE | 2018-03-06 13:40 | Coding Query ---
PRESENT ON ADMISSION QUERY To promote full compliance with coding requirements relating to pateint care, physician participation is requested in all cases of supervisor of operations uncertainty. Please assist us with the question(s) below: Please place an X within the parenthesis (x). The following diagnosis listed in this patient's medical record requires physician assistance to determine if they were present on admission (POA) or not. Please advise for each diagnosis whether it was present on admission, not present on admission, or if it was clinically undetermined. 1.Aspiration Pneumonia (x) Present on admission () Not present on admission () Unable to determine Thank you! Alexus Garrett *Definition of the present on admission (POA)-Present on admission is defined as present at the time the order for inpatient admission occurs. Conditions that develop during an outpatient encounter prior to a written order for inpatient admission (including emergency department, observation, or outpatient surgery) are considered present on admission. MIRIAN
== END 2018-02-11 14:46 | DRG 56 ==
LOC: 2N 21:38 → ED 21:38 → 2N 01-21 01:34 → SUATTDRO 01-21 17:32 → 4W 02-04 19:22 → 2W 02-05 19:06